=== PATIENT | female | born 1950 | race Caucasian/White ===

== ENCOUNTER 2018-09-27 20:37 | Inpatient (IN) | payer BC, MEDICARE ==
[2018-09-27 20:37] VITALS: BMI 27.4
--- NOTE | 2018-09-27 21:19 | C.PDOC ---
History Of Present Illness 68 yr old female w/ hx of htn, CAD, HLD, Dm2, foot cellulitis p/w foot infection. Per family and pt bedside pt noticed worsening wound recently to R 3rd digit along the plantar surface. Pt went to see Dr. Reid today who referred her to the ED. Pt notes worsening swelling to her RLE as well. She denies any fall or trauma to her foot but notes that 2 weeks prior she was on antibiotics for her R 2nd digit. R 2nd digit improved and she denies any complaints to that area. She notes chills and subjective fever but no URI symptoms or cough / congestion. No CP or SOB. No abdominal pain. No GI or complaints. No other complaints. Time Seen by Provider: 09/27/18 21:18 Chief Complaint (Nursing): Abnormal Skin Integrity Past Medical History Vital Signs: Last Vital Signs Temp 99.3 F 09/27/18 20:39 Pulse 106 H 09/27/18 20:39 Resp 22 09/27/18 20:39 BP 142/74 09/27/18 20:39 Pulse Ox 97 09/27/18 20:39 - Medical History PMH: CAD, Diabetes, HTN, Hypercholesterolemia Denies: Chronic Kidney Disease Surgical History: Denies: Pacemaker - [facility] Procedures CENTRAL VENOUS CATHETER PLACEMENT WITH GUIDANCE (11/21/14) CLOSED ENDOSCOPIC BIOPSY OF LARGE INTESTINE (08/29/13) ENDOSC POLYPECTOMY OF LG INTEST (09/19/13) EXCISION OF TOE NAIL, EXTERNAL APPROACH (06/10/18) Family History: States: Unknown Family Hx - Social History Hx Alcohol Use: No Hx Substance Use: No Review Of Systems Constitutional: Positive for: Fever, Chills. Negative for: Sweats, Weight loss Eyes: Negative for: Pain, Vision Change ENT: Negative for: Ear Pain, Nose Pain, Throat Pain Cardiovascular: Negative for: Chest Pain Respiratory: Negative for: Cough, Shortness of Breath Gastrointestinal: Negative for: Nausea, Vomiting, Abdominal Pain Genitourinary: Negative for: Dysuria Musculoskeletal: Positive for: Foot Pain. Negative for: Neck Pain, Back Pain Skin: Negative for: Rash, Lesions Neurological: Negative for: Headache Physical Exam - Physical Exam Appears: Well, Non-toxic, No Acute Distress Skin: Other (RLE 3rd digit cellulitis, no crepitus noted) Head: Atraumatic, Normacephalic Eye(s): bilateral: Normal Inspection, PERRL, EOMI Oral Mucosa: Moist Tongue: Normal Appearing Lips: Normal Appearing Neck: Normal, Normal ROM, Supple, Other (no meningeal signs) Chest: Symmetrical Cardiovascular: Rhythm Regular Respiratory: Normal Breath Sounds Gastrointestinal/Abdominal: Normal Exam, Soft, No Tenderness, No Mass, No Distention Back: Normal Inspection, No CVA Tenderness, No Vertebral Tenderness Extremity: Deformity (R 3rd digit open wound w/ surronding erythema without crepitus), Other (good n/v status in all extremitieis) Pulses: Left Dorsalis Pedis: Normal, Right Dorsalis Pedis: Normal Neurological/Psych: Oriented x3, Normal Speech, Normal Cognition ED Course And Treatment - Laboratory Results Result Diagrams: 09/27/18 21:49 O2 Sat by Pulse Oximetry: 97 Medical Decision Making Medical Decision Makin yr old female w/ hx of diabetes, cellulitis, p/w foot pain, 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 RLE swelling noted as well, but good pulses not ed to RLE. No fall or trauma history. No thrombophlebitis on exam. No crepitus. No other complaints. No cp, sob, abd pain, back pain, groin pain, or abnl vaginal d/c. Family bedside requesting Ila for ID and Val for Foot abx ordered: noted allergy to Vanco and Pencillin. 1000 labs reviewed lac 1.4 mild leukocytosis Appreciate consult w/ Podiatry resident on for Dr. Neal: to see xrays and to see pt [id number] xray notable for probable osteonecrosis to r 3rd toe Appreciate consult w/ Dr. Martinez: to admit to his service pt in NAD, agreeable to plan. denies any dark or bloody stool. Disposition - Disposition Disposition: LEFT W/O BEING SEEN - ER ONLY Disposition Time: 22:44 Condition: STABLE Forms: [facility] (Japanese) - Clinical Impression Clinical Impression: Diabetic foot infection
[2018-09-27 21:58] LABS: BASO % 0.3 % (0.0-2.0); EOS # 0.1 K/uL (0.0-0.7); EOS % 0.8 % (0.0-4.0); HEMOGLOBIN 11.3 g/dL (11.0-16.0); LYMPH # 1.5 K/uL (1.0-4.3); LYMPH % 12.8 % (20.0-40.0); MEAN CELL VOLUME 85.3 fL (81.0-99.0); MEAN CORPUSCULAR HEMOGLOBIN 27.9 pg (27.0-31.0); MEAN CORPUSCULAR HGB CONC 32.6 g/dL (33.0-37.0); MEAN PLATELET VOLUME 8.1 fL (7.2-11.7); MONO # 0.9 K/uL (0.0-0.8); MONO % 7.9 % (0.0-10.0); NEUT # 9.1 K/uL (1.8-7.0); NEUT % 78.2 % (50.0-75.0); RBC 4.04 Mil/uL (3.80-5.20); WHITE BLOOD COUNT 11.6 K/uL (4.8-10.8)
[2018-09-27] MEDS ORDERED: metroNIDAZOLE IV 500 mg/100 ml 500 MG/100 ML BAG IVPB STA (22:05)
[2018-09-27] MEDS ORDERED: Aztreonam 2 GM in Sodium Chloride 0.9% 100 ML IVPB ONE (22:05)
[2018-09-27 22:09] LABS: VENOUS BLOOD GAS PCO2 47 mmHg (40-60); VENOUS BLOOD GAS PO2 34 mm/Hg (30-55); VENOUS BLOOD PH 7.38 (7.32-7.43)
[2018-09-27] MEDS: Sodium Chloride 0.9% 1,000 ML IV SCH (22:37)
[2018-09-27 22:47] LABS: ALB/GLOB RATIO 1.1 (1.0-2.1); ALBUMIN 3.9 g/dL (3.5-5.0); AST/SGOT 14 U/L (14-36); BLOOD UREA NITROGEN 20 mg/dL (7-17); CALCIUM 9.4 mg/dl (8.6-10.4); GFR NON-AFRICAN AMERICAN > 60
[2018-09-27 22:49] LABS: ALT/SGPT < 6 U/L (9-52)
[2018-09-27] MEDS ORDERED: Glucagon Recombinant 1 mg Inj IM PRN (23:15)
[2018-09-27] MEDS ORDERED: Dextrose 50% SYRINGE Inj (50 ml) IV PRN (23:15)
[2018-09-28] MEDS: Sodium Chloride 0.9% 1,000 ML IV SCH ×3 (06:00→17:58)
--- NOTE | 2018-09-28 06:23 | CP.PCM.CON ---
History of Present Illness - History of Present Illness History of Present Illness: Podiatry consult note for Dr. Geo Neal, 68 y/o female patient with PMHx of DM2, hyperlipidemia, HTN was seen and evaluated in the ED for an infected 3rd digit. Patient states she was regularly following up with Dr. Reid for wound check, and last saw her today. Patient states she was sent to the ED by Dr. Reid. Patient came to [facility] [place] family has requested Dr. Geo Neal for podiatry consult. Patient states the wound wors ened over the last several weeks. Patient complains of associated fever and chills. Patient denies any nausea or vomiting. patient denies any pain to the foot, chest pain, shortness of breath, or abdominal pain. PMH: DM2, Hyperlipidemia PSH: C/section twice. Allergies: Penicillins, vancomycin (anaphylaxis), Levofloxacin Social Hx: denies smoking, EtOH, or illicit drug use Review of Systems - Review of Systems All systems: reviewed and no additional remarkable complaints except Review of Systems: as per HPI Past Patient History - Infectious Disease Hx of Infectious Diseases: None - Tetanus Immunizations Tetanus Immunization: Unknown - Past Medical History & Family History Past Medical History?: Yes - Past Social History Smoking Status: Never Smoked - CARDIAC Hx Cardiac Disorders: Yes Hx Hypercholesterolemia: Yes Hx Hypertension: Yes Hx Pacemaker: No - PULMONARY Hx Respiratory Disorders: No - NEUROLOGICAL Hx Neurological Disorder: Yes (diabetic neuropathy) - HEENT Hx HEENT Problems: Yes Hx Cataracts: Yes (bilat cataract sx) - RENAL Hx Chronic Kidney Disease: No - ENDOCRINE/METABOLIC Hx Endocrine Disorders: Yes Hx Diabetes Mellitus Type 2: Yes (iddm) - HEMATOLOGICAL/ONCOLOGICAL Hx Blood Disorders: No - INTEGUMENTARY Hx Dermatological Problems: Yes Other/Comment: black spots to both legs - MUSCULOSKELETAL/RHEUMATOLOGICAL Hx Falls: No - GASTROINTESTINAL Hx Gastrointestinal Disorders: Yes Hx Gastroesophageal Reflux: Yes Other/Comment: endoscopy with colon biopsy, hemorrhoids - GENITOURINARY/GYNECOLOGICAL Hx Genitourinary Disorders: No - PSYCHIATRIC Hx Substance Use: No - SURGICAL HISTORY Hx Surgeries: Yes Hx Section: Yes - ANESTHESIA Hx Anesthesia: Yes Hx Anesthesia Reactions: No Hx Malignant Hyperthermia: No Has any member of the family had a problem w/ anesthesia?: No Meds Allergies/Adverse Reactions: Allergies Allergy/AdvReac Type Severity Reaction Status Date / Time Penicillins Allergy RASH Verified 09/27/18 20:45 vancomycin Allergy RASH Verified 09/27/18 20:45 levofloxacin [From Levaquin] AdvReac SHORTNESS Verified 09/27/18 20:45 OF BREATH - Medications Medications: Current Medications Dextrose (Dextrose 50% Inj) 0 ml IV STAT PRN; Protocol PRN Reason: Hypoglycemia Protocol Dextrose (Glutose 15) 0 gm PO ONCE PRN; Protocol PRN Reason: Hypoglycemia Protocol Gabapentin (Neurontin) 300 mg PO TID [facility] Gemfibrozil (Lopid) 600 mg PO BID [facility] Glimepiride (Amaryl) 4 mg PO DAILY [facility] Glucagon (Glucagen Diagnostic Kit) 0 mg IM STAT PRN; Protocol PRN Reason: Hypoglycemia Protocol Heparin Sodium (Porcine) (Heparin) 5,000 units SC Q8 [facility] Last Admin: 09/28/18 05:59 Dose: 5,000 units Hydrochlorothiazide (Microzide) 12.5 mg PO DAILY [facility] Sodium Chloride (Sodium Chloride 0.9%) 1,000 mls @ 100 mls/hr IV .Q10H [facility] Last Admin: 09/28/18 06:00 Dose: 100 mls/hr Dextrose (Dextrose 5% In Water 1000 Ml) 1,000 mls @ 0 mls/hr IV .Q0M PRN; Protocol PRN Reason: Hypoglycemia Protocol Influenza Virus Vaccine (Flucelvax Quad [id number] Syr) 60 mcg IM .ONCE ONE Stop: 09/30/18 10:01 Insulin Glargine (Lantus) 25 unit SC HS [facility] Insulin Human Regular (Novolin R) 0 unit SC ACHS [facility]; Protocol Montelukast Sodium (Singulair) 10 mg PO DAILY [facility] Pneumococcal Polyvalent Vaccine (Pneumovax 23 Vaccine) 0.5 ml IM .ONCE ONE Stop: 09/30/18 10:01 Rosuvastatin Calcium (Crestor) 5 mg PO HS [facility] Physical Exam - Constitutional Appears: Well, No Acute Distress - Head Exam Head Exam: ATRAUMATIC, NORMOCEPHALIC - Eye Exam Eye Exam: Normal appearance - ENT Exam ENT Exam: Mucous Membranes Moist - Extremities Exam Additional comments: Bilateral Lower Extremity Focused Exam VASC: DP and PT 2/4 bilaterally, Cap refill less than 3 seconds to all digits except right 3rd, Temp gradient is warm to warm to the dorsum of the right foot, Mild edema noted NEURO: diminished gross and protective sensations. DERM: wound noted to the tip of the right 3rd digit, positive purulent drainage, with moderate erythema, positive probe to bone, positive malodor with positive fluctuance, third digit swollen and erythematous with slight discoloration noted MSK: No pain on palpation the right hallux. Muscle power intact 5/5 to all groups - Neurological Exam Neurological exam: Alert, Oriented x3 - Psychiatric Exam Psychiatric exam: Normal Affect, Normal Mood - Skin Skin Exam: Normal Color Results - Vital Signs Recent Vital Signs: Last Vital Signs Temp 100.1 F H 09/28/18 00:10 Pulse 104 H 09/28/18 00:10 Resp 20 09/28/18 00:10 BP 147/78 09/28/18 00:10 Pulse Ox 95 09/28/18 00:10 - Labs Result Diagrams: 09/27/18 21:49 09/27/18 21:49 Labs: Laboratory Results - last 24 hr 09/27/18 09/27/18 09/27/18 21:49 21:49 22:00 WBC 11.6 H RBC 4.04 Hgb 11.3 D Hct 34.5 MCV 85.3 MCH 27.9 MCHC 32.6 L RDW 13.0 Plt Count 287 MPV 8.1 Neut % (Auto) 78.2 H Lymph % (Auto) 12.8 L [place] % (Auto) 7.9 Eos % (Auto) 0.8 Baso % (Auto) 0.3 Neut # (Auto) 9.1 H Lymph # (Auto) 1.5 [place] # (Auto) 0.9 H Eos # (Auto) 0.1 Baso # (Auto) 0.0 pO2 34 VBG pH 7.38 VBG pCO2 47 VBG HCO3 25.6 VBG Total CO2 29.2 H VBG O2 Sat (Calc) 70.6 H VBG Base Excess 2.0 VBG Potassium 4.0 Glucose 335 H Lactate 1.4 Sodium 131 L 133.0 Potassium 3.8 Chloride 93 L 100.0 Carbon Dioxide 27 Anion Gap 14 BUN 20 H Creatinine 0.9 Est GFR ( Amer) > 60 Est GFR (Non-Af Amer) > 60 Random Glucose 358 H Calcium 9.4 Total Bilirubin 0.4 AST 14 D ALT < 6 L D Alkaline Phosphatase 84 Total Protein 7.5 Albumin 3.9 Globulin 3.6 Albumin/Globulin Ratio 1.1 Venous Blood Potassium 4.0 Assessment & Plan - Assessment and Plan (Free Text) Assessment: 68 y/o female patient was seen and evaluated in the [facility] ED for 3rd digit infected wound Plan: Patient seen and evaluated Plan discussed with Dr. Geo neal chart, labs and vitals were reviewed- WBC 11.9, febrile Ordered right foot x-ray- possible soft tissue emphysema noted at the level of the 3rd digit with destruction of the third middle and distal phalanges Bedside Incision and drainage performed to remove any purulent drainage about 2- 3 cc drained along with sero-sanguinous fluid Wound dressed with betadine DSD Wound culture obtained ID consult placed patient to be admitted for IV Abx Podiatry will continue to follow patient while in house Thank you for the consult - Date & Time Date: 09/28/18 Time: 09:21
--- NOTE | 2018-09-28 08:15 | CP.PCM.HP ---
History of Present Illness - History of Present Illness History of Present Illness: Chief complaint: Fever chills HPI: 68-year-old female with a history of diabetes, hyperlipidemia, hypercholesterolemia and a history of right-sided small hydronephrosis admitted recently to [facility] with right-sided leg ulcer. Patient was being treated as an outpatient. But she started having increasing fever chills, right-sided leg pain. Patient went to see business leader recommended hospitalization. Patient came to the emergency room with right leg swelling, warmth illness. She was also having chills and rigor. Patient blood sugar is also elevated. Patient started having the problem almost summer 2017 following year suspected fracture of the right great toe proximal phalanx. Following that she started developing problems in that second toe, now she is also having problem on her third toe with the discharge noted. Also ulcer present. Patient has a significant diabetic neuropathy She has now mild headache. Complaining of cough. Patient has multiple allergies to antibiotic including penicillin Vanco levofloxacin. Mostly patient has symptoms of rash, and sometimes shortness of breath with allergies. Past medical history: Hypertension diabetes hypercholesterolemia. History of CAD in the past. Patient recently had a stress test done in 2018, which was negative. Ejection fraction was 53%. Surgical history includes Family history significant for diabetes and hypertension. Patient is a non-smoker nonalcoholic. Currently retired. Patient has 2 kids Review of system: Headache noted Cough present. Cough is bothering her, associate with the some minimal wheezing. Patient in the past has some allergies. No chest pain, no shortness of breath. Patient has a no loss of appetite. Regular bowel habits noted. Complaining of right-sided leg pain Also complaining of warmth. On examination: Patient is not in any distress. Vital signs otherwise stable. Low-grade fever last night noted. Chest good air entry bilaterally, no wheezing or rales noted, heart sounds are regular otherwise, nontender abdomen Extremities bilateral dorsalis pedis artery not palpable. But the palpable of the tibialis posterior artery noted. Right leg patient has heart feeling noted There is a cough tenderness noted Patient also has a significant ulcer in the third toe. Dressed Labs reviewed Elevated WBC noted. Chest x-ray not done yet. Foot x-ray showing no evidence of any gas formation Assessment and recommendation: 68-year-old female with a history of diabetes, very poorly controlled Patient also has a history of hypertension and hyperlipidemia. History of recurrent right foot ulcer, diabetic neuropathy. Most likely patient has a possible diabetic foot ulcers at this time. Patient has multiple allergies to antibiotic at this time I recommended infectious disease evaluation. Also will get a podiatry evaluation. Antibiotic as per ID. may need to check the vascular status of the leg. Patient had arterial Doppler recently within the last 6 months showing no evidence of problems. But will continue to monitor Present on Admission - Present on Admission Any Indicators Present on Admission: No History of DVT/PE: No History of Uncontrolled Diabetes: No Urinary Catheter: No Decubitus Ulcer Present: No Past Patient History - Infectious Disease Hx of Infectious Diseases: None - Tetanus Immunizations Tetanus Immunization: Unknown - Past Medical History & Family History Past Medical History?: Yes - Past Social History Smoking Status: Never Smoked - CARDIAC Hx Cardiac Disorders: Yes Hx Hypercholesterolemia: Yes Hx Hypertension: Yes Hx Pacemaker: No - PULMONARY Hx Respiratory Disorders: No - NEUROLOGICAL Hx Neurological Disorder: Yes (diabetic neuropathy) - HEENT Hx HEENT Problems: Yes Hx Cataracts: Yes (bilat cataract sx) - RENAL Hx Chronic Kidney Disease: No - ENDOCRINE/METABOLIC Hx Endocrine Disorders: Yes Hx Diabetes Mellitus Type 2: Yes (iddm) - HEMATOLOGICAL/ONCOLOGICAL Hx Blood Disorders: No - INTEGUMENTARY Hx Dermatological Problems: Yes Other/Comment: black spots to both legs - MUSCULOSKELETAL/RHEUMATOLOGICAL Hx Falls: No - GASTROINTESTINAL Hx Gastrointestinal Disorders: Yes Hx Gastroesophageal Reflux: Yes Other/Comment: endoscopy with colon biopsy, hemorrhoids - GENITOURINARY/GYNECOLOGICAL Hx Genitourinary Disorders: No - PSYCHIATRIC Hx Substance Use: No - SURGICAL HISTORY Hx Surgeries: Yes Hx Section: Yes - ANESTHESIA Hx Anesthesia: Yes Hx Anesthesia Reactions: No Hx Malignant Hyperthermia: No Has any member of the family had a problem w/ anesthesia?: No Meds Allergies/Adverse Reactions: Allergies Allergy/AdvReac Type Severity Reaction Status Date / Time Penicillins Allergy RASH Verified 09/27/18 20:45 vancomycin Allergy RASH Verified 09/27/18 20:45 levofloxacin [From Levaquin] AdvReac SHORTNESS Verified 09/27/18 20:45 OF BREATH Results - Vital Signs Recent Vital Signs: Last Vital Signs Temp 98.9 F 09/28/18 07:25 Pulse 104 H 09/28/18 07:25 Resp 20 09/28/18 07:25 BP 128/64 09/28/18 07:25 Pulse Ox 96 09/28/18 07:25 - Labs Result Diagrams: 09/27/18 21:49 09/27/18 21:49 Labs: Laboratory Results - last 24 hr 09/27/18 09/27/18 09/27/18 21:49 21:49 22:00 WBC 11.6 H RBC 4.04 Hgb 11.3 D Hct 34.5 MCV 85.3 MCH 27.9 MCHC 32.6 L RDW 13.0 Plt Count 287 MPV 8.1 Neut % (Auto) 78.2 H Lymph % (Auto) 12.8 L [place] % (Auto) 7.9 Eos % (Auto) 0.8 Baso % (Auto) 0.3 Neut # (Auto) 9.1 H Lymph # (Auto) 1.5 [place] # (Auto) 0.9 H Eos # (Auto) 0.1 Baso # (Auto) 0.0 pO2 34 VBG pH 7.38 VBG pCO2 47 VBG HCO3 25.6 VBG Total CO2 29.2 H VBG O2 Sat (Calc) 70.6 H VBG Base Excess 2.0 VBG Potassium 4.0 Glucose 335 H Lactate 1.4 Sodium 131 L 133.0 Potassium 3.8 Chloride 93 L 100.0 Carbon Dioxide 27 Anion Gap 14 BUN 20 H Creatinine 0.9 Est GFR ( Amer) > 60 Est GFR (Non-Af Amer) > 60 Random Glucose 358 H Calcium 9.4 Total Bilirubin 0.4 AST 14 D ALT < 6 L D Alkaline Phosphatase 84 Total Protein 7.5 Albumin 3.9 Globulin 3.6 Albumin/Globulin Ratio 1.1 Venous Blood Potassium 4.0
[2018-09-28] MEDS: Promethazine 6.25 MG/5 ML CUP PO PRN (10:22)
--- NOTE | 2018-09-28 11:32 | CP.PCM.PN ---
Subjective - Date & Time of Evaluation Date of Evaluation: 09/28/18 Time of Evaluation: 11:00 - Subjective Subjective: Progress Note for Podiatry- Dr. Neal 68 y/o female patient with PMHx of DM2, hyperlipidemia, HTN was seen and evaluated with attending Dr. Neal at bedside for infected right 3rd digit with likely underlying osteomyelitis. Patient is seen resting comfortably in bed, in NAD, AAOx3. Patient reports sleeping okay. Reports feeling a fever. Denies of any pain to the right foot. Patient reports that she has neuropathy to the feet and unable to feel sensation. Denies nausa, vomitting, shortness of breath, or chest pains. Objective - Vital Signs/Intake and Output Vital Signs (last 24 hours): Temp Pulse Resp BP Pulse Ox 98.9 F 104 H 20 128/64 96 09/28/18 07:25 09/28/18 07:25 09/28/18 07:25 09/28/18 07:25 09/28/18 07:25 - Medications Medications: Current Medications Acetaminophen (Tylenol 325mg Tab) 650 mg PO Q6 PRN PRN Reason: Headache Albuterol/Ipratropium (Duoneb 3 Mg/0.5 Mg (3 Ml) Ud) [address] [facility] Dextrose (Dextrose 50% Inj) 0 ml IV STAT PRN; Protocol PRN Reason: Hypoglycemia Protocol Dextrose (Glutose 15) 0 gm PO ONCE PRN; Protocol PRN Reason: Hypoglycemia Protocol Gabapentin (Neurontin) [address] [facility] Last Admin: 09/28/18 09:49 Dose: 300 mg Gemfibrozil (Lopid) [address] [facility] Last Admin: 09/28/18 09:49 Dose: 600 mg Glimepiride (Amaryl) [address] [facility] Last Admin: 09/28/18 09:49 Dose: 4 mg Glucagon (Glucagen Diagnostic Kit) 0 mg IM STAT PRN; Protocol PRN Reason: Hypoglycemia Protocol Heparin Sodium (Porcine) (Heparin) 5,[address] [facility] Last Admin: 09/28/18 05:59 Dose: 5,000 units Hydrochlorothiazide (Microzide) 12.[address] [facility] Last Admin: 09/28/18 09:49 Dose: 12.5 mg Sodium Chloride (Sodium Chloride 0.9%) 1,000 mls @ 100 mls/hr IV .Q10H [facility] Last Admin: 09/28/18 10:01 Dose: Not Given Dextrose (Dextrose 5% In Water 1000 Ml) 1,000 mls @ 0 mls/hr IV .Q0M PRN; Protocol PRN Reason: Hypoglycemia Protocol Influenza Virus Vaccine (Flucelvax Quad [id number] Syr) 60 mcg IM .ONCE ONE Stop: 09/30/18 10:01 Insulin Glargine (Lantus) 25 unit SC [facility] Insulin Human Regular (Novolin R) 0 unit SC [facility]; Protocol Montelukast Sodium (Singulair) [address] [facility] Last Admin: 09/28/18 09:49 Dose: 10 mg Pneumococcal Polyvalent Vaccine (Pneumovax 23 Vaccine) 0.5 ml IM .ONCE ONE Stop: 09/30/18 10:01 Promethazine HCl (Phenergan Syrup) 6.25 mg PO Q6 PRN PRN Reason: Cough Last Admin: 09/28/18 10:22 Dose: 6.25 mg Rosuvastatin Calcium (Crestor) 5 mg PO [facility] - Labs Labs: 09/27/18 21:49 09/27/18 21:49 - Constitutional Appears: Well, Non-toxic, No Acute Distress - Extremities Exam Extremities Exam: absent: Calf Tenderness Additional comments: Bilateral Lower Extremity Focused Exam VASC: DP and PT 2/4 bilaterally, Cap refill less than 3 seconds to all digits except right 3rd, Temp gradient is warm to warm to the dorsum of the right foot, Mild edema noted NEURO: diminished gross and protective sensations. DERM: wound noted to the tip of the right 3rd digit, positive purulent drainage, with moderate erythema, positive probe to bone, positive malodor with positive fluctuance, third digit swollen and erythematous with slight discoloration noted MSK: No pain on palpation the right hallux. Muscle power intact 5/5 to all groups - Neurological Exam Neurological Exam: Alert, Awake, Oriented x3 - Psychiatric Exam Psychiatric exam: Normal Affect, Normal Mood Assessment and Plan - Assessment and Plan (Free Text) Assessment: 68 y/o female patient was seen and evaluated 3rd digit infected digit with wound and likely underlying osteomyelitis Plan: Patient seen and evaluated with attending Dr. Neal at bedside Plan discussed with Dr. Geo Neal Chart, labs and vitals were reviewed- WBC 11.6, febrile X-ray reviewed- 3rd digit OM, subacute to chronic nondisplaced fracture of 1st proximal phalanx Bedside incision and drainage in the ED on 09/27/18 performed to remove any purulent drainage about 2-3 cc drained along with sero-sanguinous fluid 3rd digit cleansed and betadine wet to dry applied ID consult placed, recommendations appreciated Wound culture right foot pending Patient likely has OM of the 3rd digit. Plan to go to the OR for amputation of entire 3rd digit on Thursday at 3:30PM pending medical clearance and cardiac clearance Cardiac consulted- recommendations appreciated. Thank you Patient may WBAT in surgical shoe
[2018-09-28] MEDS: (Novolin R) Insulin Human Regular 100 units/ml vial SC SCH ×4 (12:18→21:28)
[2018-09-28] MEDS: Albuterol-Ipratrop 3 mg / 0.5 (3 ml) UD INH SCH ×2 (13:25→20:28)
--- NOTE | 2018-09-28 13:31 | VASCLAB ---
Date of service: 09/28/2018 PROCEDURE: Lower Extremity Venous Duplex Exam. HISTORY: Calf pain PRIORS: None. TECHNIQUE: Bilateral common femoral, femoral, popliteal and posterior tibial, peroneal and great saphenous veins were evaluated. Flow was assessed with color Doppler, compressibility, assessment of phasic flow and augmentation response. Report prepared by [facility]el FINDINGS: RIGHT: 1. Common Femoral Vein: 1.1. Compressibility - Fully compressible: Thrombus - None : Flow - Phasic: Augmentation -Normal: Reflux - None. 2. Femoral Vein: 2.1. Compressibility - Fully compressible: Thrombus - None : Flow - Phasic: Augmentation -Normal: Reflux - None. 3. Popliteal Vein: 3.1. Compressibility - Fully compressible: Thrombus - None : Flow - Phasic: Augmentation -Normal: Reflux - None. 4. Posterior Tibial Vein: 4.1. Compressibility - Fully compressible: Thrombus - None: Flow - Phasic: Augmentation -Normal: Reflux - None. 5. Peroneal Vein: 5.1. Compressibility - Fully compressible: Thrombus - None: Flow - Phasic: Augmentation -Normal: Reflux - None. 6. Great Saphenous Vein: 6.1. Compressibility - Fully compressible: Thrombus - None: Flow - Phasic: Augmentation - Normal: Reflux - None. LEFT: 1. Common Femoral Vein: 1.1. Compressibility - Fully compressible: Thrombus - None: Flow - Phasic: Augmentation -Normal: Reflux - None. 2. Femoral Vein: 2.1. Compressibility - Fully compressible: Thrombus - None: Flow - Phasic: Augmentation -Normal: Reflux - None. 3. Popliteal Vein: 3.1. Compressibility - Fully compressible: Thrombus - None : Flow - Phasic: Augmentation -Normal: Reflux - None. 4. Posterior Tibial Vein: 4.1. Compressibility - Fully compressible: Thrombus - None: Flow - Phasic: Augmentation -Normal: Reflux - None. 5. Peroneal Vein: 5.1. Compressibility - Fully compressible: Thrombus - None: Flow - Phasic: Augmentation -Normal: Reflux - None. 6. Great Saphenous Vein: 6.1. Compressibility - Fully compressible: Thrombus - None: Flow - Phasic: Augmentation - Normal: Reflux - None. OTHER FINDINGS: Right: None significant. Left: None significant. IMPRESSION: Right: No evidence of deep or superficial vein thrombosis of the right lower extremity. Normal valve function noted of the right side. Left: No evidence of deep or superficial vein thrombosis of the left lower extremity. Normal valve function noted of the left side.
--- NOTE | 2018-09-28 13:41 | RAD ---
Date of service: 09/27/2018 PROCEDURE: HISTORY: infx COMPARISON: None TECHNIQUE: Three views FINDINGS: Abnormal increased density and lesser linear lucencies over the 1st proximal phalanx present. Here comminuted nondisplaced fracture with subchondral sclerosis is inferred concomitant spurring along the lateral proximal margin of this proximal phalanx possible. Some intra-articular extension proximally at the metacarpal and interphalangeal levels are possible. Fracture appears subacute to chronic. Correlate clinically. Additional ossifications are seen in this area is difficult to see if these are old osseous avulsions and/or represent concomitant sesamoid bones. No dislocation noted. Fifth toe clinodactyly. Soft tissue swelling and osseous ill definition 3rd distal phalanx here osteomyelitis or other destructive process needs to be considered. Cellulitis here is inferred. The 3rd middle phalanx appears intact. A well corticated bony density probably 4 mm borders the calcaneal anterior process here and os calcaneus mental variant is 1 consideration. An old osseous avulsion here is another. Inferior calcaneal spurring noted. IMPRESSION: Osseous destruction of the 3rd distal phalanx overlying soft tissue findings compatible with cellulitis. Given the osseous destruction demineralization-an osteo myelitis here needs to be considered. The 1st proximal phalangeal appearances compatible with a subacute to chronic nondisplaced comminuted fracture as referenced above. Comments: Comments: Study marked for PA review .
--- NOTE | 2018-09-28 14:25 | RAD ---
Date of service: 09/28/2018 HISTORY: cough COMPARISON: No prior. TECHNIQUE: 1 view obtained. FINDINGS: LUNGS: No active pulmonary disease. PLEURA: No significant pleural effusion identified, no pneumothorax apparent. CARDIOVASCULAR: There is presence of aortic atherosclerotic calcification on x-ray. Normal cardiac size. Mild pulmonary venous congestion possible OSSEOUS STRUCTURES: No significant abnormalities. VISUALIZED UPPER ABDOMEN: Normal. OTHER FINDINGS: None. IMPRESSION: No consolidative infiltrate. Mild pulmonary venous congestion possible.
--- NOTE | 2018-09-28 17:20 | CP.PCM.CON ---
History of Present Illness - History of Present Illness History of Present Illness: INFECTIOUS DISEASE CONSULTATION JAVIER MILLER MD, FACP 09/28/2018 3T 371-A CHART REVIEWED PT EXAMINED CASE DISCUSSED AN INFECTIOUS DISEASE CONSULTATION WAS REQUESTED 2ND TO CELLULITIS/OSTEOMYLITIS 3RD TOE RIGHT FOOT. 68 yr old female w/ hx of htn, CAD, HLD, Dm2, foot cellulitis p/w foot infection. pt noticed worsening wound recently to R 3rd digit along the plantar surface. Pt went to see Dr. Reid who referred her to the ED. Pt notes worsening swelling to her RLE as well. She denies any fall or trauma to her foot but notes that 2 weeks prior she was on antibiotics for her R 2nd digit. R 2nd digit improved and NOW she denies any complaints to that area. She notes chills and subjective fever but no URI symptoms or cough / congestion. No CP or SOB. No abdominal pain. No GI or complaints. No other complaints. Time Seen by Provider: 09/27/18 21:18 Chief Complaint (Nursing): Abnormal Skin Integrity Past Medical History Vital Signs: Last Vital Signs Temp 99.3 F 09/27/18 20:39 Pulse 106 H 09/27/18 20:39 Resp 22 09/27/18 20:39 BP 142/74 09/27/18 20:39 Pulse Ox 97 09/27/18 20:39 - Medical History PMH: CAD, Diabetes, HTN, Hypercholesterolemia Denies: Chronic Kidney Disease Surgical History: Denies: PacemakER CENTRAL VENOUS CATHETER PLACEMENT WITH GUIDANCE (11/21/14) CLOSED ENDOSCOPIC BIOPSY OF LARGE INTESTINE (08/29/13) ENDOSC POLYPECTOMY OF LG INTEST (09/19/13) EXCISION OF TOE NAIL, EXTERNAL APPROACH (06/10/18) Family History: States: Unknown Family Hx - Social History Hx Alcohol Use: No Hx Substance Use: No Review Of Systems Constitutional: Positive for: Fever, Chills. Negative for: Sweats, Weight loss Eyes: Negative for: Pain, Vision Change ENT: Negative for: Ear Pain, Nose Pain, Throat Pain Cardiovascular: Negative for: Chest Pain Respiratory: Negative for: Cough, Shortness of Breath Gastrointestinal: Negative for: Nausea, Vomiting, Abdominal Pain Genitourinary: Negative for: Dysuria Musculoskeletal: Positive for: Foot Pain. Negative for: Neck Pain, Back Pain Skin: Negative for: Rash, Lesions Neurological: Negative for: Headache Physical Exam - Physical Exam Appears: Well, Non-toxic, No Acute Distress Skin: Other (RLE 3rd digit cellulitis, no crepitus noted) Head: Atraumatic, Normacephalic Eye(s): bilateral: Normal Inspection, PERRL, EOMI Oral Mucosa: Moist Tongue: Normal Appearing Lips: Normal Appearing Neck: Normal, Normal ROM, Supple, Other (no meningeal signs) Chest: Symmetrical Cardiovascular: Rhythm Regular Respiratory: Normal Breath Sounds Gastrointestinal/Abdominal: Normal Exam, Soft, No Tenderness, No Mass, No Distention Back: Normal Inspection, No CVA Tenderness, No Vertebral Tenderness Extremity: Deformity (R 3rd digit open wound w/ surronding erythema without crepitus), Other (good n/v status in all extremitieis) Pulses: Left Dorsalis Pedis: Normal, Right Dorsalis Pedis: Normal Neurological/Psych: Oriented x3, Normal Speech, Normal Cognition ED Course And Treatment - Laboratory Results Result Diagrams: O2 Sat by Pulse Oximetry: 97 Medical Decision Making Medical Decision Makin yr old female w/ hx of diabetes, cellulitis, p/w foot pain, 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 RLE swelling noted as well, but good pulses noted to RLE. No fall or trauma history. No thrombophlebitis on exam. No crepitus. No other complaints. No cp, sob, abd pain, back pain, groin pain, or abnl vaginal d/c. Family bedside requesting Ila for ID and Val for Foot abx ordered: noted allergy to Vanco-IT MILLER AT THE IV SITE, THIS IS NOT AN ALLERGY, BUT Pencillin(?)-POSSIBLY. 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 WITH UNDERLYING DM CUBICIN AND MERREM Past Patient History - Infectious Disease Hx of Infectious Diseases: None - Tetanus Immunizations Tetanus Immunization: Unknown - Past Medical History & Family History Past Medical History?: Yes - Past Social History Smoking Status: Never Smoked - CARDIAC Hx Cardiac Disorders: Yes Hx Hypercholesterolemia: Yes Hx Hypertension: Yes Hx Pacemaker: No - PULMONARY Hx Respiratory Disorders: No - NEUROLOGICAL Hx Neurological Disorder: Yes (diabetic neuropathy) - HEENT Hx HEENT Problems: Yes Hx Cataracts: Yes (bilat cataract sx) - RENAL Hx Chronic Kidney Disease: No - ENDOCRINE/METABOLIC Hx Endocrine Disorders: Yes Hx Diabetes Mellitus Type 2: Yes (iddm) - HEMATOLOGICAL/ONCOLOGICAL Hx Blood Disorders: No - INTEGUMENTARY Hx Dermatological Problems: Yes Other/Comment: black spots to both legs - MUSCULOSKELETAL/RHEUMATOLOGICAL Hx Falls: No - GASTROINTESTINAL Hx Gastrointestinal Disorders: Yes Hx Gastroesophageal Reflux: Yes Other/Comment: endoscopy with colon biopsy, hemorrhoids - GENITOURINARY/GYNECOLOGICAL Hx Genitourinary Disorders: No - PSYCHIATRIC Hx Substance Use: No - SURGICAL HISTORY Hx Surgeries: Yes Hx Section: Yes - ANESTHESIA Hx Anesthesia: Yes Hx Anesthesia Reactions: No Hx Malignant Hyperthermia: No Has any member of the family had a problem w/ anesthesia?: No Meds Allergies/Adverse Reactions: Allergies Allergy/AdvReac Type Severity Reaction Status Date / Time Penicillins Allergy RASH Verified 09/27/18 20:45 vancomycin Allergy RASH Verified 09/27/18 20:45 levofloxacin [From Levaquin] AdvReac SHORTNESS Verified 09/27/18 20:45 OF BREATH - Medications Medications: Current Medications Acetaminophen (Tylenol 325mg Tab) 650 mg PO Q6 PRN PRN Reason: Headache Last Admin: 09/28/18 12:18 Dose: 650 mg Albuterol/Ipratropium (Duoneb 3 Mg/0.5 Mg (3 Ml) Ud) 3 ml INH RQ6 [facility] Last Admin: 09/28/18 13:25 Dose: 3 ml Dextrose (Dextrose 50% Inj) 0 ml IV STAT PRN; Protocol PRN Reason: Hypoglycemia Protocol Dextrose (Glutose 15) 0 gm PO ONCE PRN; Protocol PRN Reason: Hypoglycemia Protocol Gabapentin (Neurontin) 300 mg PO TID [facility] Last Admin: 09/28/18 17:01 Dose: 300 mg Gemfibrozil (Lopid) 600 mg PO BID [facility] Last Admin: 09/28/18 17:02 Dose: 600 mg Glimepiride (Amaryl) 4 mg PO DAILY [facility] Last Admin: 09/28/18 09:49 Dose: 4 mg Glucagon (Glucagen Diagnostic Kit) 0 mg IM STAT PRN; Protocol PRN Reason: Hypoglycemia Protocol Heparin Sodium (Porcine) (Heparin) 5,000 units SC Q8 [facility] Last Admin: 09/28/18 13:44 Dose: 5,000 units Hydrochlorothiazide (Microzide) 12.5 mg PO DAILY [facility] Last Admin: 09/28/18 09:49 Dose: 12.5 mg Sodium Chloride (Sodium Chloride 0.9%) 1,000 mls @ 100 mls/hr IV .Q10H [facility] Last Admin: 09/28/18 10:01 Dose: Not Given Dextrose (Dextrose 5% In Water 1000 Ml) 1,000 mls @ 0 mls/hr IV .Q0M PRN; Protocol PRN Reason: Hypoglycemia Protocol Influenza Virus Vaccine (Flucelvax Quad [id number] Syr) 60 mcg IM .ONCE ONE Stop: 09/30/18 10:01 Insulin Glargine (Lantus) 25 unit SC HS [facility] Insulin Human Regular (Novolin R) 0 unit SC ACHS [facility]; Protocol Last Admin: 09/28/18 17:10 Dose: 6 units Montelukast Sodium (Singulair) 10 mg PO DAILY [facility] Last Admin: 09/28/18 09:49 Dose: 10 mg Pneumococcal Polyvalent Vaccine (Pneumovax 23 Vaccine) 0.5 ml IM .ONCE ONE Stop: 09/30/18 10:01 Promethazine HCl (Phenergan Syrup) 6.25 mg PO Q6 PRN PRN Reason: Cough Last Admin: 09/28/18 10:22 Dose: 6.25 mg Rosuvastatin Calcium (Crestor) 5 mg PO HS [facility] Results - Vital Signs Recent Vital Signs: Last Vital Signs Temp 98.9 F 09/28/18 07:25 Pulse 104 H 09/28/18 14:57 Resp 20 09/28/18 07:25 BP 128/64 09/28/18 07:25 Pulse Ox 96 09/28/18 07:25 - Labs Result Diagrams: 09/27/18 21:49 09/27/18 21:49 Labs: Laboratory Results - last 24 hr 09/27/18 09/27/18 09/27/18 21:49 21:49 22:00 WBC 11.6 H RBC 4.04 Hgb 11.3 D Hct 34.5 MCV 85.3 MCH 27.9 MCHC 32.6 L RDW 13.0 Plt Count 287 MPV 8.1 Neut % (Auto) 78.2 H Lymph % (Auto) 12.8 L [place] % (Auto) 7.9 Eos % (Auto) 0.8 Baso % (Auto) 0.3 Neut # (Auto) 9.1 H Lymph # (Auto) 1.5 [place] # (Auto) 0.9 H Eos # (Auto) 0.1 Baso # (Auto) 0.0 pO2 34 VBG pH 7.38 VBG pCO2 47 VBG HCO3 25.6 VBG Total CO2 29.2 H VBG O2 Sat (Calc) 70.6 H VBG Base Excess 2.0 VBG Potassium 4.0 Glucose 335 H Lactate 1.4 Sodium 131 L 133.0 Potassium 3.8 Chloride 93 L 100.0 Carbon Dioxide 27 Anion Gap 14 BUN 20 H Creatinine 0.9 Est GFR ( Amer) > 60 Est GFR (Non-Af Amer) > 60 POC Glucose (mg/dL) Random Glucose 358 H Calcium 9.4 Total Bilirubin 0.4 AST 14 D ALT < 6 L D Alkaline Phosphatase 84 Total Protein 7.5 Albumin 3.9 Globulin 3.6 Albumin/Globulin Ratio 1.1 Venous Blood Potassium 4.0 09/28/18 09/28/18 09/28/18 08:14 11:22 16:35 WBC RBC Hgb Hct MCV MCH MCHC RDW Plt Count MPV Neut % (Auto) Lymph % (Auto) [place] % (Auto) Eos % (Auto) Baso % (Auto) Neut # (Auto) Lymph # (Auto) [place]ax # (Auto) Eos # (Auto) Baso # (Auto) pO2 VBG pH VBG pCO2 VBG HCO3 VBG Total CO2 VBG O2 Sat (Calc) VBG Base Excess VBG Potassium Glucose Lactate Sodium Potassium Chloride Carbon Dioxide Anion Gap BUN Creatinine Est GFR ( Amer) Est GFR (Non-Af Amer) POC Glucose (mg/dL) 182 H 330 H 348 H Random Glucose Calcium Total Bilirubin AST ALT Alkaline Phosphatase Total Protein Albumin Globulin Albumin/Globulin Ratio Venous Blood Potassium
[2018-09-28] MEDS: Meropenem 500 MG in Sodium Chloride 0.9% 100 ML IVPB SCH (17:50)
[2018-09-28] MEDS ORDERED: (Lantus) Insulin Glargine, Recombinant SC SCH (22:00)
[2018-09-29] MEDS: Meropenem 500 MG in Sodium Chloride 0.9% 100 ML IVPB SCH ×3 (02:00→17:06)
[2018-09-29] MEDS: Albuterol-Ipratrop 3 mg / 0.5 (3 ml) UD INH SCH ×4 (03:14→19:16)
[2018-09-29] MEDS: Sodium Chloride 0.9% 1,000 ML IV SCH ×2 (04:16→11:00)
--- NOTE | 2018-09-29 07:30 | CP.PCM.CON ---
History of Present Illness - History of Present Illness History of Present Illness: Pre Op Cardiac Risk assessment 68 y/o female patient with PMHx of DM2, hyperlipidemia, HTN was seen and evaluated in the ED for an infected 3rd digit. Patient states she was regularly following up with Dr. Reid for wound check. Patient states she was sent to the ED by Dr. Reid. Patient came to [facility] family has requested Dr. Geo Neal for podiatry consult. Patient states the wound worsened over the last several weeks. Patient complains of associated fever and chills. Patient denies any nausea or vomiting. patient denies any pain to the foot, chest pain, shortness of breath, or abdominal pain. PMH: DM2, Hyperlipidemia PSH: C/section twice. Allergies: Penicillins, vancomycin (anaphylaxis), Levofloxacin Social Hx: denies smoking, EtOH, or illicit drug use Review of Systems - Review of Systems All systems: reviewed and no additional remarkable complaints except Review of Systems: as per HPI Meds Allergies/Adverse Reactions: Allergies Allergy/AdvReac Type Severity Reaction Status Date / Time Penicillins Allergy RASH Verified 09/27/18 20:45 vancomycin Allergy RASH Verified 09/27/18 20:45 levofloxacin [From Levaquin] AdvReac SHORTNESS Verified 09/27/18 20:45 OF BREATH - Medications Medications: Current Medications Dextrose (Dextrose 50% Inj) 0 ml IV STAT PRN; Protocol PRN Reason: Hypoglycemia Protocol Dextrose (Glutose 15) 0 gm PO ONCE PRN; Protocol PRN Reason: Hypoglycemia Protocol Gabapentin (Neurontin) 300 mg PO TID [facility] Gemfibrozil (Lopid) 600 mg PO BID [facility] Glimepiride (Amaryl) 4 mg PO DAILY [facility] Glucagon (Glucagen Diagnostic Kit) 0 mg IM STAT PRN; Protocol PRN Reason: Hypoglycemia Protocol Heparin Sodium (Porcine) (Heparin) 5,000 units SC Q8 [facility] Last Admin: 09/28/18 05:59 Dose: 5,000 units Hydrochlorothiazide (Microzide) 12.5 mg PO DAILY [facility] Sodium Chloride (Sodium Chloride 0.9%) 1,000 mls @ 100 mls/hr IV .Q10H [facility] Last Admin: 09/28/18 06:00 Dose: 100 mls/hr Dextrose (Dextrose 5% In Water 1000 Ml) 1,000 mls @ 0 mls/hr IV .Q0M PRN; Protocol PRN Reason: Hypoglycemia Protocol Influenza Virus Vaccine (Flucelvax Quad [id number] Syr) 60 mcg IM .ONCE ONE Stop: 09/30/18 10:01 Insulin Glargine (Lantus) 25 unit SC HS [facility] Insulin Human Regular (Novolin R) 0 unit SC ACHS [facility]; Protocol Montelukast Sodium (Singulair) 10 mg PO DAILY [facility] Pneumococcal Polyvalent Vaccine (Pneumovax 23 Vaccine) 0.5 ml IM .ONCE ONE Stop: 09/30/18 10:01 Rosuvastatin Calcium (Crestor) 5 mg PO HS [facility] Physical Exam - Constitutional Appears: Well, No Acute Distress - Head Exam Head Exam: ATRAUMATIC, NORMOCEPHALIC - Eye Exam Eye Exam: Normal appearance - ENT Exam ENT Exam: Mucous Membranes Moist - Extremities Exam Additional comments: Bilateral Lower Extremity Focused Exam VASC: DP and PT 2/4 bilaterally, Cap refill less than 3 seconds to all digits except right 3rd, Temp gradient is warm to warm to the dorsum of the right foot, Mild edema noted NEURO: diminished gross and protective sensations. DERM: wound noted to the tip of the right 3rd digit, positive purulent drainage, with moderate erythema, positive probe to bone, positive malodor with positive fluctuance, third digit swollen and erythematous with slight discoloration noted MSK: No pain on palpation the right hallux. Muscle power intact 5/5 to all groups - Neurological Exam Neurological exam: Alert, Oriented x3 - Psychiatric Exam Psychiatric exam: Normal Affect, Normal Mood - Skin Skin Exam: Normal Color Past Patient History - Infectious Disease Hx of Infectious Diseases: None - Tetanus Immunizations Tetanus Immunization: Unknown - Past Medical History & Family History Past Medical History?: Yes - Past Social History Smoking Status: Never Smoked - CARDIAC Hx Cardiac Disorders: Yes Hx Hypercholesterolemia: Yes Hx Hypertension: Yes Hx Pacemaker: No - PULMONARY Hx Respiratory Disorders: No - NEUROLOGICAL Hx Neurological Disorder: Yes (diabetic neuropathy) - HEENT Hx HEENT Problems: Yes Hx Cataracts: Yes (bilat cataract sx) - RENAL Hx Chronic Kidney Disease: No - ENDOCRINE/METABOLIC Hx Endocrine Disorders: Yes Hx Diabetes Mellitus Type 2: Yes (iddm) - HEMATOLOGICAL/ONCOLOGICAL Hx Blood Disorders: No - INTEGUMENTARY Hx Dermatological Problems: Yes Other/Comment: black spots to both legs - MUSCULOSKELETAL/RHEUMATOLOGICAL Hx Falls: No - GASTROINTESTINAL Hx Gastrointestinal Disorders: Yes Hx Gastroesophageal Reflux: Yes Other/Comment: endoscopy with colon biopsy, hemorrhoids - GENITOURINARY/GYNECOLOGICAL Hx Genitourinary Disorders: No - PSYCHIATRIC Hx Substance Use: No - SURGICAL HISTORY Hx Surgeries: Yes Hx Section: Yes - ANESTHESIA Hx Anesthesia: Yes Hx Anesthesia Reactions: No Hx Malignant Hyperthermia: No Has any member of the family had a problem w/ anesthesia?: No Meds Allergies/Adverse Reactions: Allergies Allergy/AdvReac Type Severity Reaction Status Date / Time Penicillins Allergy RASH Verified 09/27/18 20:45 vancomycin Allergy RASH Verified 09/27/18 20:45 levofloxacin [From Levaquin] AdvReac SHORTNESS Verified 09/27/18 20:45 OF BREATH - Medications Medications: Current Medications Acetaminophen (Tylenol 325mg Tab) 650 mg PO Q6 PRN PRN Reason: Headache Last Admin: 09/28/18 12:18 Dose: 650 mg Albuterol/Ipratropium (Duoneb 3 Mg/0.5 Mg (3 Ml) Ud) 3 ml INH RQ6 [facility] Last Admin: 09/29/18 03:14 Dose: Not Given Dextrose (Dextrose 50% Inj) 0 ml IV STAT PRN; Protocol PRN Reason: Hypoglycemia Protocol Dextrose (Glutose 15) 0 gm PO ONCE PRN; Protocol PRN Reason: Hypoglycemia Protocol Docusate Sodium (Colace) 100 mg PO TID [facility] Gabapentin (Neurontin) 300 mg PO TID [facility] Last Admin: 09/28/18 17:01 Dose: 300 mg Gemfibrozil (Lopid) 600 mg PO BID [facility] Last Admin: 09/28/18 17:02 Dose: 600 mg Glimepiride (Amaryl) 4 mg PO DAILY [facility] Last Admin: 09/28/18 09:49 Dose: 4 mg Glucagon (Glucagen Diagnostic Kit) 0 mg IM STAT PRN; Protocol PRN Reason: Hypoglycemia Protocol Heparin Sodium (Porcine) (Heparin) 5,000 units SC Q8 [facility] Last Admin: 09/29/18 05:13 Dose: 5,000 units Hydrochlorothiazide (Microzide) 12.5 mg PO DAILY [facility] Last Admin: 09/28/18 09:49 Dose: 12.5 mg Sodium Chloride (Sodium Chloride 0.9%) 1,000 mls @ 100 mls/hr IV .Q10H [facility] Last Admin: 09/29/18 04:16 Dose: Not Given Dextrose (Dextrose 5% In Water 1000 Ml) 1,000 mls @ 0 mls/hr IV .Q0M PRN; Protocol PRN Reason: Hypoglycemia Protocol Daptomycin 400 mg/ Sodium (Chloride) 100 mls @ 100 mls/hr IV Q24H [facility]; Protocol Stop: 10/03/18 18:01 Last Admin: 09/28/18 18:37 Dose: 100 mls/hr Meropenem 500 mg/ Sodium (Chloride) 100 mls @ 100 mls/hr IVPB Q8H [facility]; Protocol Last Admin: 09/29/18 02:00 Dose: 100 mls/hr Influenza Virus Vaccine (Flucelvax Quad [id number] Syr) 60 mcg IM .ONCE ONE Stop: 09/30/18 10:01 Insulin Glargine (Lantus) 25 unit SC [facility] Last Admin: 09/28/18 21:27 Dose: 25 u Insulin Human Regular (Novolin R) 0 unit SC [facility]; Protocol Last Admin: 09/28/18 21:28 Dose: Not Given Loratadine (Claritin) 10 mg PO DAILY [facility] Last Admin: 09/28/18 21:26 Dose: 10 mg Montelukast Sodium (Singulair) 10 mg PO DAILY [facility] Last Admin: 09/28/18 09:49 Dose: 10 mg Pneumococcal Polyvalent Vaccine (Pneumovax 23 Vaccine) 0.5 ml IM .ONCE ONE Stop: 09/30/18 10:01 Promethazine HCl (Phenergan Syrup) 6.25 mg PO Q6 PRN PRN Reason: Cough Last Admin: 09/28/18 10:22 Dose: 6.25 mg Rosuvastatin Calcium (Crestor) 5 mg PO [facility] Last Admin: 09/28/18 21:26 Dose: 5 mg Results - Vital Signs Recent Vital Signs: Last Vital Signs Temp 98.7 F 09/29/18 00:00 Pulse 88 09/29/18 00:00 Resp 20 09/29/18 00:00 BP 120/65 09/29/18 00:00 Pulse Ox 98 09/29/18 00:00 - Labs Result Diagrams: 09/27/18 21:49 09/27/18 21:49 Labs: Laboratory Results - last 24 hr 09/28/18 09/28/18 09/28/18 08:14 11:22 16:35 POC Glucose (mg/dL) 182 H 330 H 348 H 09/28/18 09/29/18 21:01 06:59 POC Glucose (mg/dL) 228 H 206 H Assessment & Plan - Assessment and Plan (Free Text) Assessment: 68 F with hx of DM2, HTN with no active cardiac symptoms Recent stress test at [facility] 07/21/18: Normal ECHO 07/21/18: EF 45% Stable hemodynamics Likely cardiac risk for toe amputation or foot surgery moderate Recommend to proceed with the surgery if indicated
[2018-09-29] MEDS: (Novolin R) Insulin Human Regular 100 units/ml vial SC SCH ×3 (08:30→17:07)
[2018-09-29] MEDS: Promethazine 6.25 MG/5 ML CUP PO PRN ×2 (08:55→17:07)
[2018-09-29 12:14] LABS: ALBUMIN 3.4 g/dL (3.5-5.0); ALT/SGPT 6 U/L (9-52); AST/SGOT 15 U/L (14-36); BLOOD UREA NITROGEN 13 mg/dL (7-17); GFR NON-AFRICAN AMERICAN > 60
--- NOTE | 2018-09-29 15:40 | CP.PCM.PN ---
Subjective - Date & Time of Evaluation Date of Evaluation: 09/29/18 Time of Evaluation: 15:36 - Subjective Subjective: Pt seen at bedside for f/u right 3rd digit ulcer. Wound probes to bone. X-Rays shows destructive change to distal phalanx right 3rd digit. 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 Pt elects for amp of right 3rd d igit. Pt understands all risks and alternatives and consents to right 3rd digit amp on 10/01/2018 at 3:30 PM. Pt understands that this is a limb salvage operation and that if healing is compromised future surgery and/or limbloss is possible. Pt was cleared by cardiology. Medicine to see and clear pt. Pre op orders will be put in tomorrow for NPO and holding of Heparin. Objective - Vital Signs/Intake and Output Vital Signs (last 24 hours): Temp Pulse Resp BP Pulse Ox 98.9 F 90 20 134/79 97 09/29/18 07:47 09/29/18 07:47 09/29/18 07:47 09/29/18 07:47 09/29/18 07:47 Intake and Output: 09/29/18 09/29/18 06:59 18:59 Intake Total 1280 Balance 1280 - Medications Medications: Current Medications Acetaminophen (Tylenol 325mg Tab) 650 mg PO Q6 PRN PRN Reason: Headache Last Admin: 09/28/18 12:18 Dose: 650 mg Albuterol/Ipratropium (Duoneb 3 Mg/0.5 Mg (3 Ml) Ud) 3 ml INH RQ6 [facility] Last Admin: 09/29/18 13:50 Dose: 3 ml Dextrose (Dextrose 50% Inj) 0 ml IV STAT PRN; Protocol PRN Reason: Hypoglycemia Protocol Dextrose (Glutose 15) 0 gm PO ONCE PRN; Protocol PRN Reason: Hypoglycemia Protocol Docusate Sodium (Colace) 100 mg PO TID [facility] Last Admin: 09/29/18 14:14 Dose: 100 mg Gabapentin (Neurontin) 300 mg PO TID [facility] Last Admin: 09/29/18 14:14 Dose: 300 mg Gemfibrozil (Lopid) 600 mg PO BID [facility] Last Admin: 09/29/18 11:26 Dose: 600 mg Glimepiride (Amaryl) 4 mg PO DAILY [facility] Last Admin: 09/29/18 11:25 Dose: 4 mg Glucagon (Glucagen Diagnostic Kit) 0 mg IM STAT PRN; Protocol PRN Reason: Hypoglycemia Protocol Heparin Sodium (Porcine) (Heparin) 5,000 units SC Q8 [facility] Last Admin: 09/29/18 14:13 Dose: 5,000 units Hydrochlorothiazide (Microzide) 12.5 mg PO DAILY [facility] Last Admin: 09/29/18 11:26 Dose: 12.5 mg Sodium Chloride (Sodium Chloride 0.9%) 1,000 mls @ 100 mls/hr IV .Q10H [facility] Last Admin: 09/29/18 11:00 Dose: 100 mls/hr Dextrose (Dextrose 5% In Water 1000 Ml) 1,000 mls @ 0 mls/hr IV .Q0M PRN; Protocol PRN Reason: Hypoglycemia Protocol Daptomycin 400 mg/ Sodium (Chloride) 100 mls @ 100 mls/hr IV Q24H [facility]; Protocol Stop: 10/03/18 18:01 Last Admin: 09/28/18 18:37 Dose: 100 mls/hr Meropenem 500 mg/ Sodium (Chloride) 100 mls @ 100 mls/hr IVPB Q8H [facility]; Protocol Last Admin: 09/29/18 10:30 Dose: 100 mls/hr Influenza Virus Vaccine (Flucelvax Quad [id number] Syr) 60 mcg IM .ONCE ONE Stop: 09/30/18 10:01 Insulin Glargine (Lantus) 25 unit SC [facility] Last Admin: 09/28/18 21:27 Dose: 25 u Insulin Human Regular (Novolin R) 0 unit SC ACHS [facility]; Protocol Last Admin: 09/29/18 12:48 Dose: 6 units Loratadine (Claritin) 10 mg PO DAILY [facility] Last Admin: 09/29/18 11:25 Dose: 10 mg Montelukast Sodium (Singulair) 10 mg PO DAILY [facility] Last Admin: 09/29/18 11:26 Dose: 10 mg Pneumococcal Polyvalent Vaccine (Pneumovax 23 Vaccine) 0.5 ml IM .ONCE ONE Stop: 09/30/18 10:01 Promethazine HCl (Phenergan Syrup) 6.25 mg PO Q6 PRN PRN Reason: Cough Last Admin: 09/29/18 08:55 Dose: 6.25 mg Rosuvastatin Calcium (Crestor) 5 mg PO HS [facility] Last Admin: 09/28/18 21:26 Dose: 5 mg - Labs Labs: 09/27/18 21:49 09/29/18 10:15
[2018-09-29] MEDS ORDERED: (Lantus) Insulin Glargine, Recombinant SC SCH ×2 (19:05→22:00)
--- NOTE | 2018-09-29 21:13 | CARD ---
APPROVED REPORT Date of service: 09/27/2018 EKG Measurement Heart [id number] <Conclusion> Sinus tachycardia Cannot rule out Anterior infarct, age undetermined ST & T wave abnormality, consider lateral ischemia Abnormal ECG
[2018-09-29] MEDS: (Novolog) Insulin Aspart, Recombinant 100 u/ml 10 ml vial SC SCH (21:29)
--- NOTE | 2018-09-29 23:38 | CP.PCM.PN ---
Subjective - Date & Time of Evaluation Date of Evaluation: 09/29/18 Time of Evaluation: 18:30 - Subjective Subjective: Pre Op Cardiac Risk assessment 68 y/o female patient with PMHx of DM2, hyperlipidemia, HTN was seen and evaluated in the ED for an infected 3rd digit. Patient states she was regularly following up with Dr. Reid for wound check. Patient states she was sent to the ED by Dr. Reid. Patient came to [facility] family has requested Dr. Geo Neal for podiatry consult. Patient states the wound worsened over the last several weeks. Patient complains of associated fever and chills. Patient denies any nausea or vomiting. patient denies any pain to the foot, chest pain, shortness of breath, or abdominal pain. PMH: DM2, Hyperlipidemia PSH: C/section twice. Allergies: Penicillins, vancomycin (anaphylaxis), Levofloxacin Social Hx: denies smoking, EtOH, or illicit drug use Review of Systems - Review of Systems All systems: reviewed and no additional remarkable complaints except Review of Systems: as per HPI Meds Allergies/Adverse Reactions: Allergies Allergy/AdvReac Type Severity Reaction Status Date / Time Penicillins Allergy RASH Verified 09/27/18 20:45 vancomycin Allergy RASH Verified 09/27/18 20:45 levofloxacin [From Levaquin] AdvReac SHORTNESS Verified 09/27/18 20:45 OF BREATH - Medications Medications: Current Medications Dextrose (Dextrose 50% Inj) 0 ml IV STAT PRN; Protocol PRN Reason: Hypoglycemia Protocol Dextrose (Glutose 15) 0 gm PO ONCE PRN; Protocol PRN Reason: Hypoglycemia Protocol Gabapentin (Neurontin) 300 mg PO TID [facility] Gemfibrozil (Lopid) 600 mg PO BID [facility] Glimepiride (Amaryl) 4 mg PO DAILY [facility] Glucagon (Glucagen Diagnostic Kit) 0 mg IM STAT PRN; Protocol PRN Reason: Hypoglycemia Protocol Heparin Sodium (Porcine) (Heparin) 5,000 units SC Q8 [facility] Last Admin: 09/28/18 05:59 Dose: 5,000 units Hydrochlorothiazide (Microzide) 12.5 mg PO DAILY [facility] Sodium Chloride (Sodium Chloride 0.9%) 1,000 mls @ 100 mls/hr IV .Q10H [facility] Last Admin: 09/28/18 06:00 Dose: 100 mls/hr Dextrose (Dextrose 5% In Water 1000 Ml) 1,000 mls @ 0 mls/hr IV .Q0M PRN; Protocol PRN Reason: Hypoglycemia Protocol Influenza Virus Vaccine (Flucelvax Quad [id number] Syr) 60 mcg IM .ONCE ONE Stop: 09/30/18 10:01 Insulin Glargine (Lantus) 25 unit SC HS [facility] Insulin Human Regular (Novolin R) 0 unit SC ACHS [facility]; Protocol Montelukast Sodium (Singulair) 10 mg PO DAILY [facility] Pneumococcal Polyvalent Vaccine (Pneumovax 23 Vaccine) 0.5 ml IM .ONCE ONE Stop: 09/30/18 10:01 Rosuvastatin Calcium (Crestor) 5 mg PO HS [facility] Physical Exam - Constitutional Appears: Well, No Acute Distress - Head Exam Head Exam: ATRAUMATIC, NORMOCEPHALIC - Eye Exam Eye Exam: Normal appearance - ENT Exam ENT Exam: Mucous Membranes Moist - Extremities Exam Additional comments: Bilateral Lower Extremity Focused Exam VASC: DP and PT 2/4 bilaterally, Cap refill less than 3 seconds to all digits except right 3rd, Temp gradient is warm to warm to the dorsum of the right foot, Mild edema noted NEURO: diminished gross and protective sensations. DERM: wound noted to the tip of the right 3rd digit, positive purulent drainage, with moderate erythema, positive probe to bone, positive malodor with positive fluctuance, third digit swollen and erythematous with slight discoloration noted MSK: No pain on palpation the right hallux. Muscle power intact 5/5 to all groups - Neurological Exam Neurological exam: Alert, Oriented x3 - Psychiatric Exam Psychiatric exam: Normal Affect, Normal Mood - Skin Skin Exam: Normal Color Past Patient History - Infectious Disease Hx of Infectious Diseases: None - Tetanus Immunizations Tetanus Immunization: Unknown - Past Medical History & Family History Past Medical History?: Yes - Past Social History Smoking Status: Never Smoked - CARDIAC Hx Cardiac Disorders: Yes Hx Hypercholesterolemia: Yes Hx Hypertension: Yes Hx Pacemaker: No - PULMONARY Hx Respiratory Disorders: No - NEUROLOGICAL Hx Neurological Disorder: Yes (diabetic neuropathy) - HEENT Hx HEENT Problems: Yes Hx Cataracts: Yes (bilat cataract sx) - RENAL Hx Chronic Kidney Disease: No - ENDOCRINE/METABOLIC Hx Endocrine Disorders: Yes Hx Diabetes Mellitus Type 2: Yes (iddm) - HEMATOLOGICAL/ONCOLOGICAL Hx Blood Disorders: No - INTEGUMENTARY Hx Dermatological Problems: Yes Other/Comment: black spots to both legs - MUSCULOSKELETAL/RHEUMATOLOGICAL Hx Falls: No - GASTROINTESTINAL Hx Gastrointestinal Disorders: Yes Hx Gastroesophageal Reflux: Yes Other/Comment: endoscopy with colon biopsy, hemorrhoids - GENITOURINARY/GYNECOLOGICAL Hx Genitourinary Disorders: No - PSYCHIATRIC Hx Substance Use: No - SURGICAL HISTORY Hx Surgeries: Yes Hx Section: Yes - ANESTHESIA Hx Anesthesia: Yes Hx Anesthesia Reactions: No Hx Malignant Hyperthermia: No Has any member of the family had a problem w/ anesthesia?: No Meds Allergies/Adverse Reactions: Allergies Allergy/AdvReac Type Severity Reaction Status Date / Time Penicillins Allergy RASH Verified 09/27/18 20:45 vancomycin Allergy RASH Verified 09/27/18 20:45 levofloxacin [From Levaquin] AdvReac SHORTNESS Verified 09/27/18 20:45 OF BREATH - Medications Medications: Current Medications Acetaminophen (Tylenol 325mg Tab) 650 mg PO Q6 PRN PRN Reason: Headache Last Admin: 09/28/18 12:18 Dose: 650 mg Albuterol/Ipratropium (Duoneb 3 Mg/0.5 Mg (3 Ml) Ud) 3 ml INH RQ6 [facility] Last Admin: 09/29/18 03:14 Dose: Not Given Dextrose (Dextrose 50% Inj) 0 ml IV STAT PRN; Protocol PRN Reason: Hypoglycemia Protocol Dextrose (Glutose 15) 0 gm PO ONCE PRN; Protocol PRN Reason: Hypoglycemia Protocol Docusate Sodium (Colace) 100 mg PO TID [facility] Gabapentin (Neurontin) 300 mg PO TID [facility] Last Admin: 09/28/18 17:01 Dose: 300 mg Gemfibrozil (Lopid) 600 mg PO BID [facility] Last Admin: 09/28/18 17:02 Dose: 600 mg Glimepiride (Amaryl) 4 mg PO DAILY [facility] Last Admin: 09/28/18 09:49 Dose: 4 mg Glucagon (Glucagen Diagnostic Kit) 0 mg IM STAT PRN; Protocol PRN Reason: Hypoglycemia Protocol Heparin Sodium (Porcine) (Heparin) 5,000 units SC Q8 [facility] Last Admin: 09/29/18 05:13 Dose: 5,000 units Hydrochlorothiazide (Microzide) 12.5 mg PO DAILY [facility] Last Admin: 09/28/18 09:49 Dose: 12.5 mg Sodium Chloride (Sodium Chloride 0.9%) 1,000 mls @ 100 mls/hr IV .Q10H [facility] Last Admin: 09/29/18 04:16 Dose: Not Given Dextrose (Dextrose 5% In Water 1000 Ml) 1,000 mls @ 0 mls/hr IV .Q0M PRN; Protocol PRN Reason: Hypoglycemia Protocol Daptomycin 400 mg/ Sodium (Chloride) 100 mls @ 100 mls/hr IV Q24H [facility]; Protocol Stop: 10/03/18 18:01 Last Admin: 09/28/18 18:37 Dose: 100 mls/hr Meropenem 500 mg/ Sodium (Chloride) 100 mls @ 100 mls/hr IVPB Q8H [facility]; Protocol Last Admin: 09/29/18 02:00 Dose: 100 mls/hr Influenza Virus Vaccine (Flucelvax Quad [id number] Syr) 60 mcg IM .ONCE ONE Stop: 09/30/18 10:01 Insulin Glargine (Lantus) 25 unit SC [facility] Last Admin: 09/28/18 21:27 Dose: 25 u Insulin Human Regular (Novolin R) 0 unit SC [facility]; Protocol Last Admin: 09/28/18 21:28 Dose: Not Given Loratadine (Claritin) 10 mg PO DAILY [facility] Last Admin: 09/28/18 21:26 Dose: 10 mg Montelukast Sodium (Singulair) 10 mg PO DAILY [facility] Last Admin: 09/28/18 09:49 Dose: 10 mg Pneumococcal Polyvalent Vaccine (Pneumovax 23 Vaccine) 0.5 ml IM .ONCE ONE Stop: 09/30/18 10:01 Promethazine HCl (Phenergan Syrup) 6.25 mg PO Q6 PRN PRN Reason: Cough Last Admin: 09/28/18 10:22 Dose: 6.25 mg Rosuvastatin Calcium (Crestor) 5 mg PO [facility] Last Admin: 09/28/18 21:26 Dose: 5 mg Results - Vital Signs Recent Vital Signs: Last Vital Signs Temp 98.7 F 09/29/18 00:00 Pulse 88 09/29/18 00:00 Resp 20 09/29/18 00:00 BP 120/65 09/29/18 00:00 Pulse Ox 98 09/29/18 00:00 - Labs Result Diagrams: 09/27/18 21:49 09/27/18 21:49 Labs: Laboratory Results - last 24 hr 09/28/18 09/28/18 09/28/18 08:14 11:22 16:35 POC Glucose (mg/dL) 182 H 330 H 348 H 09/28/18 09/29/18 21:01 06:59 POC Glucose (mg/dL) 228 H 206 H Assessment & Plan - Assessment and Plan (Free Text) Assessment: 68 F with hx of DM2, HTN with no active cardiac symptoms Recent stress test at [place] 07/21/18: Normal ECHO 07/21/18: EF 45% Stable hemodynamics Likely cardiac risk for toe amputation or foot surgery moderate Recommend to proceed with the surgery if indicated Objective - Vital Signs/Intake and Output Vital Signs (last 24 hours): Temp Pulse Resp BP Pulse Ox 99.2 F 114 H 20 129/74 98 09/29/18 17:01 09/29/18 17:01 09/29/18 17:01 09/29/18 17:01 09/29/18 17:01 Intake and Output: 09/29/18 09/30/18 18:59 06:59 Intake Total 1300 Balance 1300 - Medications Medications: Current Medications Acetaminophen (Tylenol 325mg Tab) 650 mg PO Q6 PRN PRN Reason: Headache Last Admin: 09/28/18 12:18 Dose: 650 mg Albuterol/Ipratropium (Duoneb 3 Mg/0.5 Mg (3 Ml) Ud) 3 ml INH RQ6 [facility] Last Admin: 09/29/18 19:16 Dose: Not Given Dextrose (Dextrose 50% Inj) 0 ml IV STAT PRN; Protocol PRN Reason: Hypoglycemia Protocol Dextrose (Glutose 15) 0 gm PO ONCE PRN; Protocol PRN Reason: Hypoglycemia Protocol Docusate Sodium (Colace) 100 mg PO TID [facility] Last Admin: 09/29/18 19:11 Dose: 100 mg Gabapentin (Neurontin) 300 mg PO TID [facility] Last Admin: 09/29/18 17:08 Dose: 300 mg Gemfibrozil (Lopid) 600 mg PO BID [facility] Last Admin: 09/29/18 17:08 Dose: 600 mg Glucagon (Glucagen Diagnostic Kit) 0 mg IM STAT PRN; Protocol PRN Reason: Hypoglycemia Protocol Heparin Sodium (Porcine) (Heparin) 5,000 units SC Q8 [facility] Last Admin: 09/29/18 21:27 Dose: 5,000 units Sodium Chloride (Sodium Chloride 0.9%) 1,000 mls @ 100 mls/hr IV .Q10H [facility] Last Admin: 09/29/18 11:00 Dose: 100 mls/hr Dextrose (Dextrose 5% In Water 1000 Ml) 1,000 mls @ 0 mls/hr IV .Q0M PRN; Protocol PRN Reason: Hypoglycemia Protocol Daptomycin 400 mg/ Sodium (Chloride) 100 mls @ 100 mls/hr IV Q24H [facility]; Protocol Stop: 10/03/18 18:01 Last Admin: 09/29/18 18:30 Dose: 100 mls/hr Meropenem 500 mg/ Sodium (Chloride) 100 mls @ 100 mls/hr IVPB Q8H [facility]; Protocol Last Admin: 09/29/18 17:06 Dose: 100 mls/hr Influenza Virus Vaccine (Flucelvax Quad [id number] Syr) 60 mcg IM .ONCE ONE Stop: 09/30/18 10:01 Insulin Aspart (Novolog) 0 unit SC ACHS [facility] Last Admin: 09/29/18 21:29 Dose: Not Given Insulin Aspart (Novolog) 14 unit SC AC [facility] Insulin Glargine (Lantus) 34 unit SC HS [facility] Last Admin: 09/29/18 21:28 Dose: 34 u Loratadine (Claritin) 10 mg PO DAILY [facility] Last Admin: 09/29/18 11:25 Dose: 10 mg Montelukast Sodium (Singulair) 10 mg PO DAILY [facility] Last Admin: 09/29/18 11:26 Dose: 10 mg Pneumococcal Polyvalent Vaccine (Pneumovax 23 Vaccine) 0.5 ml IM .ONCE ONE Stop: 09/30/18 10:01 Promethazine HCl (Phenergan Syrup) 6.25 mg PO Q6 PRN PRN Reason: Cough Last Admin: 09/29/18 17:07 Dose: 6.25 mg Rosuvastatin Calcium (Crestor) 5 mg PO HS [facility] Last Admin: 09/29/18 21:27 Dose: 5 mg Sitagliptin Phosphate (Januvia) 100 mg PO DAILY [facility] - Labs Labs: 09/27/18 21:49 09/29/18 10:15
[2018-09-30] MEDS: Meropenem 500 MG in Sodium Chloride 0.9% 100 ML IVPB SCH ×3 (01:29→17:51)
[2018-09-30] MEDS: Sodium Chloride 0.9% 1,000 ML IV SCH ×2 (01:34→11:03)
[2018-09-30] MEDS: Albuterol-Ipratrop 3 mg / 0.5 (3 ml) UD INH SCH ×3 (01:38→19:55)
--- NOTE | 2018-09-30 06:48 | CP.PCM.CON ---
History of Present Illness - History of Present Illness History of Present Illness: Pgy3 Internal Medicine Resident Endocrinology Consult note for Dr. Pearce Reason for consult: uncontrolled sugars 68yo [place] female PMHx CAD, DM2, HLD, HTN, toe nail avulsion, DM neuropathy, constipation, osteomyelitis, medication noncompliance with multiple hospitalizations sent in by podiatry Dr Reid for cellulitis of 3rd digit Right foot. Endocrinology consulted for DM management. Patient reports she was [place] [facility] was [place] for cellulitis of 3rd digit Right foot. Patient states the wound worsened over the last several weeks and she began to experience subjective fever and chills and was thus sent to ER. This AM patient seen and examined at bedside. Nursing reported no acute events overnight. Patient reports since admission she has symptomatically improved however she still complains of b/l LE neuropathic pain and a headache. Patient is aware she is scheduled for OR tomorrow 10/01. 12point ROS as per above otherwise negative PMHx: CAD, DM2, HLD, HTN, toe nail avulsion, DM neuropathy, constipation, osteomyelitis, medication noncompliance PSHx: x 2 PHospHx: multiple [place] [facility] SocHx: denies tobacco, alcohol and illicit drug use; lives at home with family FamHx: Father, from [place] at 61yo; hx of DM/HTN/CAD Allergies: PCN, vancomycin, levaquin PMD: Navneet - last seen a few months ago Cardio: Val Podiatry: Jeanette - last seen Thursday09/27/18 Endocrinology: patient couldn't remember name; seen at [facility] outpatient on [address] in [place] - last seen 2 mo ago Optho: Dalton - last seen a few months ago Review of Systems - Review of Systems All systems: reviewed and no additional remarkable complaints except Review of Systems: as per HPI Past Patient History - Infectious Disease Hx of Infectious Diseases: None - Tetanus Immunizations Tetanus Immunization: Unknown - Past Medical History & Family History Past Medical History?: Yes - Past Social History Smoking Status: Never Smoked - CARDIAC Hx Cardiac Disorders: Yes Hx Hypercholesterolemia: Yes Hx Hypertension: Yes Hx Pacemaker: No - PULMONARY Hx Respiratory Disorders: No - NEUROLOGICAL Hx Neurological Disorder: Yes (diabetic neuropathy) - HEENT Hx HEENT Problems: Yes Hx Cataracts: Yes (bilat cataract sx) - RENAL Hx Chronic Kidney Disease: No - ENDOCRINE/METABOLIC Hx Endocrine Disorders: Yes Hx Diabetes Mellitus Type 2: Yes (iddm) - HEMATOLOGICAL/ONCOLOGICAL Hx Blood Disorders: No - INTEGUMENTARY Hx Dermatological Problems: Yes Other/Comment: black spots to both legs - MUSCULOSKELETAL/RHEUMATOLOGICAL Hx Falls: No - GASTROINTESTINAL Hx Gastrointestinal Disorders: Yes Hx Gastroesophageal Reflux: Yes Other/Comment: endoscopy with colon biopsy, hemorrhoids - GENITOURINARY/GYNECOLOGICAL Hx Genitourinary Disorders: No - PSYCHIATRIC Hx Substance Use: No - SURGICAL HISTORY Hx Surgeries: Yes Hx Section: Yes - ANESTHESIA Hx Anesthesia: Yes Hx Anesthesia Reactions: No Hx Malignant Hyperthermia: No Has any member of the family had a problem w/ anesthesia?: No Meds Allergies/Adverse Reactions: Allergies Allergy/AdvReac Type Severity Reaction Status Date / Time Penicillins Allergy RASH Verified 09/27/18 20:45 vancomycin Allergy RASH Verified 09/27/18 20:45 levofloxacin [From Levaquin] AdvReac SHORTNESS Verified 09/27/18 20:45 OF BREATH - Medications Medications: Current Medications Acetaminophen (Tylenol 325mg Tab) 650 mg PO Q6 PRN PRN Reason: Headache Last Admin: 09/28/18 12:18 Dose: 650 mg Albuterol/Ipratropium (Duoneb 3 Mg/0.5 Mg (3 Ml) Ud) 3 ml INH RQ6 [facility] Last Admin: 09/30/18 01:38 Dose: Not Given Dextrose (Dextrose 50% Inj) 0 ml IV STAT PRN; Protocol PRN Reason: Hypoglycemia Protocol Dextrose (Glutose 15) 0 gm PO ONCE PRN; Protocol PRN Reason: Hypoglycemia Protocol Docusate Sodium (Colace) 100 mg PO TID [facility] Last Admin: 09/29/18 19:11 Dose: 100 mg Gabapentin (Neurontin) 300 mg PO TID [facility] Last Admin: 09/29/18 17:08 Dose: 300 mg Gemfibrozil (Lopid) 600 mg PO BID [facility] Last Admin: 09/29/18 17:08 Dose: 600 mg Glucagon (Glucagen Diagnostic Kit) 0 mg IM STAT PRN; Protocol PRN Reason: Hypoglycemia Protocol Heparin Sodium (Porcine) (Heparin) 5,000 units SC Q8 [facility] Last Admin: 09/30/18 05:38 Dose: 5,000 units Sodium Chloride (Sodium Chloride 0.9%) 1,000 mls @ 100 mls/hr IV .Q10H [facility] Last Admin: 09/30/18 01:34 Dose: 100 mls/hr Dextrose (Dextrose 5% In Water 1000 Ml) 1,000 mls @ 0 mls/hr IV .Q0M PRN; Protocol PRN Reason: Hypoglycemia Protocol Daptomycin 400 mg/ Sodium (Chloride) 100 mls @ 100 mls/hr IV Q24H [facility]; Protocol Stop: 10/03/18 18:01 Last Admin: 09/29/18 18:30 Dose: 100 mls/hr Meropenem 500 mg/ Sodium (Chloride) 100 mls @ 100 mls/hr IVPB Q8H [facility]; Protocol Last Admin: 09/30/18 01:29 Dose: 100 mls/hr Influenza Virus Vaccine (Flucelvax Quad [id number] Syr) 60 mcg IM .ONCE ONE Stop: 09/30/18 10:01 Insulin Aspart (Novolog) 0 unit SC [facility] Last Admin: 09/29/18 21:29 Dose: Not Given Insulin Aspart (Novolog) 14 unit SC AC [facility] Insulin Glargine (Lantus) 34 unit SC [facility] Last Admin: 09/29/18 21:28 Dose: 34 u Loratadine (Claritin) 10 mg PO DAILY [facility] Last Admin: 09/29/18 11:25 Dose: 10 mg Montelukast Sodium (Singulair) 10 mg PO DAILY [facility] Last Admin: 09/29/18 11:26 Dose: 10 mg Pneumococcal Polyvalent Vaccine (Pneumovax 23 Vaccine) 0.5 ml IM .ONCE ONE Stop: 09/30/18 10:01 Promethazine HCl (Phenergan Syrup) 6.25 mg PO Q6 PRN PRN Reason: Cough Last Admin: 09/29/18 17:07 Dose: 6.25 mg Rosuvastatin Calcium (Crestor) 5 mg PO [facility] Last Admin: 09/29/18 21:27 Dose: 5 mg Sitagliptin Phosphate (Januvia) 100 mg PO DAILY [facility] Physical Exam - Constitutional Appears: Non-toxic, No Acute Distress - Head Exam Head Exam: ATRAUMATIC, NORMAL INSPECTION, NORMOCEPHALIC - Eye Exam Eye Exam: EOMI, Normal appearance, PERRL. absent: Conjunctival injection, Scleral icterus - ENT Exam ENT Exam: Mucous Membranes Moist - Neck Exam Neck exam: Positive for: Full Rom, Normal Inspection - Respiratory Exam Respiratory Exam: Clear to Auscultation Bilateral, NORMAL BREATHING PATTERN. absent: Accessory Muscle Use, Rales, Rhonchi, Wheezes - Cardiovascular Exam Cardiovascular Exam: RRR, +S1, +S2 - GI/Abdominal Exam GI & Abdominal Exam: Normal Bowel Sounds, Soft. absent: Firm, Guarding, Rigid, Tenderness - Extremities Exam Additional comments: R foot dressings noted - Neurological Exam Neurological exam: Alert, CN II-XII Intact, Oriented x3 - Psychiatric Exam Psychiatric exam: Normal Affect, Normal Mood - Skin Skin Exam: Normal Color, Warm Results - Vital Signs Recent Vital Signs: Last Vital Signs Temp 99.9 F H 09/30/18 00:00 Pulse 100 H 09/30/18 00:00 Resp 20 09/30/18 00:00 BP 136/77 09/30/18 00:00 Pulse Ox 95 09/30/18 00:00 - Labs Result Diagrams: 09/27/18 21:49 09/30/18 06:30 Labs: Laboratory Results - last 24 hr 09/29/18 09/29/18 09/29/18 06:59 10:15 11:07 Sodium 134 Potassium 3.4 L Chloride 101 Carbon Dioxide 27 Anion Gap 10 BUN 13 Creatinine 0.7 Est GFR ( Amer) > 60 Est GFR (Non-Af Amer) > 60 POC Glucose (mg/dL) 206 H 302 H Random Glucose 306 H Calcium 9.0 Phosphorus 2.7 Magnesium 1.9 Total Bilirubin 0.2 AST 15 ALT 6 L Alkaline Phosphatase 72 Total Protein 6.8 Albumin 3.4 L Globulin 3.4 Albumin/Globulin Ratio 1.0 09/29/18 09/29/18 16:31 21:23 Sodium Potassium Chloride Carbon Dioxide Anion Gap BUN Creatinine Est GFR ( Amer) Est GFR (Non-Af Amer) POC Glucose (mg/dL) 317 H 262 H Random Glucose Calcium Phosphorus Magnesium Total Bilirubin AST ALT Alkaline Phosphatase Total Protein Albumin Globulin Albumin/Globulin Ratio Assessment & Plan - Assessment and Plan (Free Text) Assessment: 68yo [place] female PMHx CAD, DM2, HLD, HTN, toe nail avulsion, DM neuropathy, constipation, osteomyelitis, medication noncompliance with multiple hospitalizations sent in by podiatry Dr Reid for cellulitis of 3rd digit Right foot. Endocrinology consulted for DM management. Plan: Uncontrolled IDDM Patient's blood work, imaging, and vitals reviewed. HgbA1c this AM 11.7. As patient is due for OR tomorrow and will be NPO past midnight we will start the patient on D51/2NS @ 100cc/hr at midnight and HOLD her standing Novolog 14u sc ac at midnight tonight. We will also HOLD her Lantus 34U at night and give her Lantus 20U sc hs instead. We will continue RISS at this time for coverage. Patient will be resumed on home medications after procedure. Patient counseled thoroughly on the importance of medication compliance. Will continue to monitor patient closely. Discussed with Dr. Ramses Lindsay PGY3
[2018-09-30 06:58] LABS: ALBUMIN 3.5 g/dL (3.5-5.0); AST/SGOT 14 U/L (14-36); BLOOD UREA NITROGEN 11 mg/dL (7-17); CALCIUM 9.1 mg/dl (8.6-10.4); GFR NON-AFRICAN AMERICAN > 60; HDL CHOLESTEROL 40 mg/dL (30-70)
[2018-09-30 07:09] LABS: ALT/SGPT < 6 U/L (9-52); LDL CHOLESTEROL 80 mg/dL (0-129)
[2018-09-30] MEDS ORDERED: (Novolog) Insulin Aspart, Recombinant 100 u/ml 10 ml vial SC SCH (07:30)
[2018-09-30] MEDS: (Novolog) Insulin Aspart, Recombinant 100 u/ml 10 ml vial SC SCH ×7 (08:00→21:52)
--- NOTE | 2018-09-30 09:18 | CON ---
DATE: 09/29/2018 ENDOCRINOLOGY CONSULT LOCATION: Room 371. HISTORY OF PRESENT ILLNESS: This is a 68-year-old female with known history of type 2 insulin-requiring diabetes, presenting here with a right toe nonhealing ulceration and associated cellulitis and is now being referred for diabetic evaluation and management because of persistent hyperglycemic accelerations as noted thereof. PAST MEDICAL HISTORY: History of type 2 insulin-requiring diabetes, on a combination therapy with Amaryl taken as 4 mg daily and Janumet b.i.d. with insulin combination of Lantus taken as 50 units at bedtime and Humalog taken as 15 units t.i.d., history of hypertension and dyslipidemia, history of coronary artery disease with peripheral vasculopathy and severe diabetic polyneuropathy. FAMILY HISTORY: Positive for diabetes and hypertension. SOCIAL HISTORY: The patient has a supportive family. No known substance use. REVIEW OF SYSTEMS: As mentioned above admits to generalized body weakness with episodic bouts of dizziness and lightheadedness, and suboptimal energy level. Also admits to recent visual blurring with bifrontal headaches. No chest pains or palpitations. Also admits to episodic shortness of breath, especially on exertion. Her oral intake has been variable with nausea, dyspepsia, and habitual constipation. Also admits to recent polyuria, nocturia, and polydipsia. Also admits to lower extremity painful paresthesia, especially nocturnally. Moreover admits to a nonhealing right third toe ulcer with purulent discharge and supervening redness in the right foot over the last week or so prior to admission, has a recent second toe infection also in the right foot which apparently healed as noted. PHYSICAL EXAMINATION: GENERAL: Overweight female, in no apparent distress. VITAL SIGNS: Blood pressure of 148/80, pulse of 100 beats per minute and regular, temperature 100, respirations 20, height 5 feet 2 inches, weight is 166 pounds. HEENT: Head, normocephalic. Eyes: Anicteric with pink conjunctivae. Funduscopy not possible at this time. Ears, nose and throat: Otherwise normal. NECK: Supple. Thyroid gland is in normal size. No carotid bruits or cervical adenopathy. CARDIOPULMONARY: Some adynamic precordium. S1 and S2, rapid and regular. LUNGS: Clear to auscultation. ABDOMEN: Flat and soft with positive bowel sounds. EXTREMITIES: No peripheral edema. Pulses are +2 bilaterally. The right lower extremity shows erythema and edema of the dorsum of the right foot with an ulceration in the third digit of the right foot most prominent on the plantar surface as noted. LABORATORY DATA: Her chemistries showed a BUN of 15, sodium 134, potassium 3.4, chloride 101, CO2 of 27. Glucose of 306, creatinine 0.7. Her glucose levels have ranged from 262 to 317 mg/dL. ASSESSMENT: This is a 68-year-old female with uncontrolled and decompensated type 2 insulin-requiring diabetes with marked hyperglycemic accelerations despite combination therapy, presenting here with right foot cellulitis with a nonhealing neuropathic ulceration in the third digit with mild odor and purulent discharge as noted. She also has significant diabetic microvascular complications of painful diabetic polyneuropathy with macrovascular complications of coronary artery disease and peripheral vasculopathy as noted. PLAN OF MANAGEMENT: We will modify her current insulin regimen and start a basal and bolus insulin drug combination, which is clearly more physiologic in terms of optimizing her metabolic control. We will add Lantus at 34 units subcutaneous at bedtime daily to start tonight. We will also add Novolog given as 14 units t.i.d. before meals to start tomorrow morning at breakfast time as ordered. We will modify the coverage scale to obviate hypoglycemia and detailed orders have been given for a low dose Novolog coverage as ordered. We will resume her Januvia given as 100 mg once daily as ordered. We will obtain a hemoglobin A1c to confirm her prior poor glycemic control and baseline thyroid studies and the lipid panel will be ordered. We will reinforce diabetic education and diabetic instructions at the time of this admission. We will follow and advise accordingly. Anna Marie Pearce MD
[2018-09-30] MEDS ORDERED: Pneumococcal 23-Valent Vaccine IM ONE (10:00)
[2018-09-30] MEDS ORDERED: Influenza Vaccine 60 mcg/0.5 mL SYR (4YR UP) IM ONE (10:00)
--- NOTE | 2018-09-30 12:10 | CP.PCM.PN ---
Subjective - Date & Time of Evaluation Date of Evaluation: 09/30/18 Time of Evaluation: 11:00 - Subjective Subjective: Progress Note for Podiatry- Dr. Neal 68 y/o female patient with PMHx of DM2, hyperlipidemia, HTN was seen and evaluated with infected right 3rd digit with osteomyelitis. Patient is seen resting comfortably in bed, in NAD, AAOx3. Patient reports that she has pain to her 3rd digit. Reports feeling intermittent pain. Denies nausea, shortness of breath, chest pains or chills. No other complaints. Objective - Vital Signs/Intake and Output Vital Signs (last 24 hours): Temp Pulse Resp BP Pulse Ox 99 F 93 H 20 146/83 96 09/30/18 07:00 09/30/18 07:00 09/30/18 07:00 09/30/18 07:00 09/30/18 07:00 Intake and Output: 09/30/18 09/30/18 06:59 18:59 Intake Total 1040 Balance 1040 - Medications Medications: Current Medications Acetaminophen (Tylenol 325mg Tab) 650 mg PO Q6 PRN PRN Reason: Headache Last Admin: 09/30/18 11:00 Dose: 650 mg Albuterol/Ipratropium (Duoneb 3 Mg/0.5 Mg (3 Ml) Ud) 3 ml INH RQ6 [facility] Last Admin: 09/30/18 08:25 Dose: 3 ml Docusate Sodium (Colace) 100 mg PO TID [facility] Last Admin: 09/30/18 10:58 Dose: 100 mg Gabapentin (Neurontin) 300 mg PO TID [facility] Last Admin: 09/30/18 10:59 Dose: 300 mg Gemfibrozil (Lopid) 600 mg PO BID [facility] Last Admin: 09/30/18 11:00 Dose: 600 mg Heparin Sodium (Porcine) (Heparin) 5,000 units SC Q8 [facility] Last Admin: 09/30/18 05:38 Dose: 5,000 units Daptomycin 400 mg/ Sodium (Chloride) 100 mls @ 100 mls/hr IV Q24H [facility]; Protocol Stop: 10/03/18 18:01 Last Admin: 09/29/18 18:30 Dose: 100 mls/hr Meropenem 500 mg/ Sodium (Chloride) 100 mls @ 100 mls/hr IVPB Q8H [facility]; Protocol Last Admin: 09/30/18 10:30 Dose: 100 mls/hr Dextrose/Sodium Chloride (Dextrose 5%/0.45% Ns 1000 Ml) 1,000 mls @ 100 mls/hr IV .Q10H [facility] Insulin Aspart (Novolog) 0 unit SC ACHS [facility] Last Admin: 09/30/18 12:01 Dose: Not Given Insulin Aspart (Novolog) 14 unit SC AC [facility] Last Admin: 09/30/18 08:30 Dose: 14 units Insulin Glargine (Lantus) 34 unit SC HS [facility] Last Admin: 09/29/18 21:28 Dose: 34 u Insulin Glargine (Lantus) 20 unit SC HS [facility] Stop: 09/30/18 22:01 Loratadine (Claritin) 10 mg PO DAILY [facility] Last Admin: 09/30/18 10:59 Dose: 10 mg Montelukast Sodium (Singulair) 10 mg PO DAILY [facility] Last Admin: 09/30/18 10:58 Dose: 10 mg Promethazine HCl (Phenergan Syrup) 6.25 mg PO Q6 PRN PRN Reason: Cough Last Admin: 09/29/18 17:07 Dose: 6.25 mg Rosuvastatin Calcium (Crestor) 5 mg PO HS [facility] Last Admin: 09/29/18 21:27 Dose: 5 mg Sitagliptin Phosphate (Januvia) 100 mg PO DAILY [facility] Last Admin: 09/30/18 10:58 Dose: 100 mg - Labs Labs: 09/27/18 21:49 09/30/18 06:30 - Constitutional Appears: Well, Non-toxic, No Acute Distress - Extremities Exam Extremities Exam: absent: Calf Tenderness Additional comments: Bilateral Lower Extremity Focused Exam VASC: DP and PT 2/4 bilaterally, Cap refill less than 3 seconds to all digits except right 3rd, Temp gradient is warm to warm to the dorsum of the right foot, Mild edema noted NEURO: diminished gross and protective sensations. DERM: wound noted to the tip of the right 3rd digit, positive purulent drainage, with moderate erythema, positive probe to bone, positive malodor with positive fluctuance, third digit swollen and erythematous with slight discoloration noted MSK: No pain on palpation the right hallux. Muscle power intact 5/5 to all groups - Neurological Exam Neurological Exam: Alert, Awake, Normal Gait - Psychiatric Exam Psychiatric exam: Normal Affect, Normal Mood Assessment and Plan - Assessment and Plan (Free Text) Assessment: 68 y/o female patient was seen and evaluated 3rd digit infected digit with wound and likely underlying osteomyelitis Plan: Patient seen and evaluated Plan discussed with Dr. Geo Neal Chart, labs and vitals were reviewed- WBC 8.6, febrile X-ray reviewed- 3rd digit OM, subacute to chronic nondisplaced fracture of 1st proximal phalange 3rd digit cleansed and betadine wet to dry applied ID consult placed, recommendations appreciated Wound culture right foot- staphylococcus Aureus Plan to go to the OR for amputation of entire 3rd digit on Thursday at 3:30PM pending medical clearance Per architect in training, "Likely cardiac risk for toe amputation or foot surgery moderate Recommend to proceed with the surgery if indicated" Heparin held for tomorrow, NPO Diet after midnight Patient may WBAT in surgical shoe
[2018-09-30 13:56] LABS: BASO % 0.5 % (0.0-2.0); EOS # 0.2 K/uL (0.0-0.7); EOS % 1.8 % (0.0-4.0); HEMOGLOBIN 9.5 g/dL (11.0-16.0); LYMPH # 1.1 K/uL (1.0-4.3); LYMPH % 12.8 % (20.0-40.0); MEAN CELL VOLUME 85.8 fL (81.0-99.0); MEAN CORPUSCULAR HEMOGLOBIN 28.8 pg (27.0-31.0); MEAN CORPUSCULAR HGB CONC 33.5 g/dL (33.0-37.0); MEAN PLATELET VOLUME 8.1 fL (7.2-11.7); MONO # 0.8 K/uL (0.0-0.8); MONO % 8.8 % (0.0-10.0); NEUT # 6.7 K/uL (1.8-7.0); NEUT % 76.1 % (50.0-75.0); RBC 3.3 Mil/uL (3.80-5.20); WHITE BLOOD COUNT 8.8 K/uL (4.8-10.8)
[2018-09-30] MEDS: Promethazine 6.25 MG/5 ML CUP PO PRN (17:53)
--- NOTE | 2018-09-30 20:11 | PN ---
DATE: 09/30/2018 LOCATION: ROOM 371. SUBJECTIVE: This is a 68-year-old female with recent uncontrolled type 2 insulin requiring diabetes, presenting here with a right third toe nonhealing neuropathic ulceration with associated cellulitis and is actually scheduled for amputation tomorrow afternoon as noted and is also being followed closely for metabolic management because of recent hyperglycemic accelerations as noted thereof. Her A1c has actually been reported as 11.7% indicative of suboptimal metabolic control of her diabetic condition as noted. LABORATORY DATA: Her glucose levels today have dramatically improved overnight with glucose values ranging from 108 to 238 mg/dL. It was 262 at bedtime last night and it was 317 at dinnertime yesterday. Her chemistry showed a BUN of 11, sodium 137, potassium 3.9, chloride 104, CO2 of 29, glucose 98, and creatinine 0.7. ASSESSMENT: This is a 68-year-old female with uncontrolled and decompensated type 2 insulin requiring diabetes, presenting here with nonhealing neuropathic ulceration of the right third digit in the right foot with underlying cellulitis and also with concomitant diabetic microvascular complications of polyneuropathy as noted. She also has diabetic macrovascular complications of coronary artery disease and peripheral vasculopathy as noted. PLAN OF MANAGEMENT: We will modify her basal and bolus insulin regimen and increase the NovoLog to 14 units t.i.d. before meals despite today as ordered. We will also modify her basal insulin and increase the Lantus to 34 units subcu at bedtime daily despite tonight. We will continue to modify lower dose regimen for NovoLog insulin as given to obviate hypoglycemia and detailed orders have been given. We will obtain serial chemistries and supplement accordingly as needed. We will follow. Anna Marie Pearce MD
[2018-09-30] MEDS ORDERED: (Lantus) Insulin Glargine, Recombinant SC ONE (22:00)
[2018-09-30] MEDS: Dextrose 5%/0.45% NS 1,000 ML IV SCH (23:22)
[2018-10-01] MEDS: Meropenem 500 MG in Sodium Chloride 0.9% 100 ML IVPB SCH ×3 (00:37→17:50)
[2018-10-01] MEDS: Albuterol-Ipratrop 3 mg / 0.5 (3 ml) UD INH SCH ×4 (01:26→22:00)
--- NOTE | 2018-10-01 06:34 | CP.PCM.PN ---
Subjective - Date & Time of Evaluation Date of Evaluation: 10/01/18 Time of Evaluation: 06:40 - Subjective Subjective: Pgy3 Internal Medicine resident Endocrinology Progress note for Dr. Pearce Patient seen and examined this morning. As per nursing no acute events overnight. Patient for OR this afternoon and has been NPO on maintenance fluids overnight. Patient complained of being very hungry and having a very dry mouth. She reported her headache had improved and rated pain of her right foot as 5/10 in intensity. She complained of constipation and having only had 1 small BM since admission. 12point ROS reviewed and otherwise unremarkable unless stated above. Objective - Vital Signs/Intake and Output Vital Signs (last 24 hours): Temp Pulse Resp BP Pulse Ox 98.1 F 90 20 130/80 97 09/30/18 23:47 09/30/18 23:47 09/30/18 23:47 09/30/18 23:47 09/30/18 23:47 Intake and Output: 09/30/18 10/01/18 18:59 06:59 Intake Total 1300 2000 Balance 1300 2000 - Medications Medications: Current Medications Acetaminophen (Tylenol 325mg Tab) 650 mg PO Q6 PRN PRN Reason: Headache Last Admin: 09/30/18 11:00 Dose: 650 mg Albuterol/Ipratropium (Duoneb 3 Mg/0.5 Mg (3 Ml) Ud) 3 ml INH RQ6 [facility] Last Admin: 10/01/18 01:26 Dose: Not Given Docusate Sodium (Colace) 100 mg PO TID [facility] Last Admin: 09/30/18 17:50 Dose: 100 mg Gabapentin (Neurontin) 300 mg PO TID [facility] Last Admin: 09/30/18 17:50 Dose: 300 mg Gemfibrozil (Lopid) 600 mg PO BID [facility] Last Admin: 09/30/18 18:01 Dose: 600 mg Heparin Sodium (Porcine) (Heparin) 5,000 units SC Q8 [facility] Last Admin: 09/30/18 21:50 Dose: 5,000 units Daptomycin 400 mg/ Sodium (Chloride) 100 mls @ 100 mls/hr IV Q24H [facility]; Protocol Stop: 10/03/18 18:01 Last Admin: 09/30/18 17:00 Dose: 100 mls/hr Meropenem 500 mg/ Sodium (Chloride) 100 mls @ 100 mls/hr IVPB Q8H [facility]; Protocol Last Admin: 10/01/18 00:37 Dose: 100 mls/hr Dextrose/Sodium Chloride (Dextrose 5%/0.45% Ns 1000 Ml) 1,000 mls @ 100 mls/hr IV .Q10H [facility] Last Admin: 09/30/18 23:22 Dose: 100 mls/hr Insulin Aspart (Novolog) 0 unit SC ACHS [facility] Last Admin: 09/30/18 21:52 Dose: Not Given Insulin Aspart (Novolog) 14 unit SC AC [facility] Last Admin: 09/30/18 16:30 Dose: Not Given Insulin Glargine (Lantus) 34 unit SC HS [facility] Last Admin: 09/29/18 21:28 Dose: 34 u Loratadine (Claritin) 10 mg PO DAILY [facility] Last Admin: 09/30/18 10:59 Dose: 10 mg Montelukast Sodium (Singulair) 10 mg PO DAILY [facility] Last Admin: 09/30/18 10:58 Dose: 10 mg Promethazine HCl (Phenergan Syrup) 6.25 mg PO Q6 PRN PRN Reason: Cough Last Admin: 09/30/18 17:53 Dose: 6.25 mg Rosuvastatin Calcium (Crestor) 5 mg PO HS [facility] Last Admin: 09/30/18 21:54 Dose: 5 mg Sitagliptin Phosphate (Januvia) 100 mg PO DAILY [facility] Last Admin: 09/30/18 10:58 Dose: 100 mg - Labs Labs: 09/30/18 13:52 09/30/18 06:30 - Additional Findings Additional findings: - Constitutional Appears: Non-toxic, No Acute Distress - Head Exam Head Exam: ATRAUMATIC, NORMAL INSPECTION, NORMOCEPHALIC - Eye Exam Eye Exam: EOMI, Normal appearance, PERRL. absent: Conjunctival injection, Scleral icterus - ENT Exam ENT Exam: Mucous Membranes Dry - Neck Exam Neck exam: Positive for: Full Rom, Normal Inspection - Respiratory Exam Respiratory Exam: Clear to Auscultation Bilateral, NORMAL BREATHING PATTERN. absent: Accessory Muscle Use, Rales, Rhonchi, Wheezes - Cardiovascular Exam Cardiovascular Exam: RRR, +S1, +S2 - GI/Abdominal Exam GI & Abdominal Exam: Normal Bowel Sounds, Soft. absent: Firm, Guarding, Rigid, Tenderness - Extremities Exam Additional comments: R foot dressings noted - Neurological Exam Neurological exam: Alert, CN II-XII Intact, Oriented x3 - Psychiatric Exam Psychiatric exam: Normal Affect, Normal Mood - Skin Skin Exam: Normal Color, Warm - Constitutional Appears: Non-toxic, No Acute Distress - Head Exam Head Exam: ATRAUMATIC, NORMAL INSPECTION, NORMOCEPHALIC - Eye Exam Eye Exam: EOMI, Normal appearance, PERRL. absent: Conjunctival injection, Scleral icterus - ENT Exam ENT Exam: Mucous Membranes Moist - Neck Exam Neck exam: Positive for: Full Rom, Normal Inspection - Respiratory Exam Respiratory Exam: Clear to Auscultation Bilateral, NORMAL BREATHING PATTERN. absent: Accessory Muscle Use, Rales, Rhonchi, Wheezes - Cardiovascular Exam Cardiovascular Exam: RRR, +S1, +S2 - GI/Abdominal Exam GI & Abdominal Exam: Normal Bowel Sounds, Soft. absent: Firm, Guarding, Rigid, Tenderness - Extremities Exam Additional comments: R foot dressings noted - Neurological Exam Neurological exam: Alert, CN II-XII Intact, Oriented x3 - Psychiatric Exam Psychiatric exam: Normal Affect, Normal Mood - Skin Skin Exam: Normal Color, Warm Assessment and Plan - Assessment and Plan (Free Text) Assessment: 68yo Syrian female PMHx CAD, DM2, HLD, HTN, toe nail avulsion, DM neuropathy, constipation, osteomyelitis, medication noncompliance with multiple hospitalizations sent in by podiatry Dr Reid for cellulitis of 3rd digit Right foot. Endocrinology consulted for DM management. Plan: Uncontrolled IDDM Patient's blood work, imaging, and vitals reviewed. HgbA1c 11.7. As patient is due for OR patient has been NPO past midnight and on D51/2NS @ 100cc/hr. Will d/c fluids after procedure and resume Lantus 34U qhs and Novolog 14u sc. We will continue RISS at this time for coverage. Patient will be resumed on all other home medications after procedure. Patient counseled thoroughly on the importance of medication compliance. Will continue to monitor patient closely. Discussed with Dr. Ramses Lindsay PGY3
[2018-10-01 06:54] LABS: BASO # 0.1 K/uL (0.0-0.2); BASO % 0.7 % (0.0-2.0); EOS # 0.4 K/uL (0.0-0.7); EOS % 4.5 % (0.0-4.0); HEMOGLOBIN 10.1 g/dL (11.0-16.0); LYMPH % 24.2 % (20.0-40.0); MEAN CELL VOLUME 85.8 fL (81.0-99.0); MEAN CORPUSCULAR HGB CONC 32.7 g/dL (33.0-37.0); MONO # 0.7 K/uL (0.0-0.8); MONO % 8.8 % (0.0-10.0); NEUT # 5.2 K/uL (1.8-7.0); NEUT % 61.8 % (50.0-75.0); RBC 3.59 Mil/uL (3.80-5.20); RED CELL DISTRIBUTION WIDTH 12.7 % (11.5-14.5); WHITE BLOOD COUNT 8.4 K/uL (4.8-10.8)
[2018-10-01 07:05] LABS: INR 1.1
[2018-10-01] MEDS: (Novolog) Insulin Aspart, Recombinant 100 u/ml 10 ml vial SC SCH ×4 (07:47→21:23)
[2018-10-01 08:01] LABS: ALBUMIN 3.2 g/dL (3.5-5.0); ALT/SGPT < 6 U/L (9-52); AST/SGOT 20 U/L (14-36); BLOOD UREA NITROGEN 11 mg/dL (7-17); GFR NON-AFRICAN AMERICAN > 60
[2018-10-01] MEDS: Dextrose 5%/0.45% NS 1,000 ML IV SCH ×2 (08:53→09:11)
--- NOTE | 2018-10-01 14:33 | CP.PCM.PN ---
Subjective - Date & Time of Evaluation Date of Evaluation: 10/01/18 Time of Evaluation: 11:00 - Subjective Subjective: Progress Note for Podiatry- Dr. Neal 68 y/o female patient with PMHx of DM2, hyperlipidemia, HTN was seen and evaluated with infected right 3rd digit with osteomyelitis. Patient understands she will be going to the OR today for an amputation of right 3rd digit secondary to osteomyelitis. Denies fever or chills last night. Reports some mild pain. Reports nothing to eat or drink since midnight. Denies nausea, shortness of breath, chest pains or chills. Objective - Vital Signs/Intake and Output Vital Signs (last 24 hours): Temp Pulse Resp BP Pulse Ox 98 F 90 20 135/79 98 10/01/18 07:36 10/01/18 07:36 10/01/18 07:36 10/01/18 07:36 10/01/18 07:36 Intake and Output: 10/01/18 10/01/18 06:59 18:59 Intake Total 1999 Balance 1999 - Medications Medications: Current Medications Acetaminophen (Tylenol 325mg Tab) 650 mg PO Q6 PRN PRN Reason: Headache Last Admin: 09/30/18 11:00 Dose: 650 mg Albuterol/Ipratropium (Duoneb 3 Mg/0.5 Mg (3 Ml) Ud) 3 ml INH RQ6 [facility] Last Admin: 10/01/18 08:50 Dose: 3 ml Docusate Sodium (Colace) 100 mg PO TID [facility] Last Admin: 10/01/18 13:23 Dose: Not Given Gabapentin (Neurontin) 300 mg PO TID [facility] Last Admin: 10/01/18 13:23 Dose: Not Given Gemfibrozil (Lopid) 600 mg PO BID [facility] Last Admin: 10/01/18 09:11 Dose: Not Given Heparin Sodium (Porcine) (Heparin) 5,000 units SC Q8 [facility] Last Admin: 09/30/18 21:50 Dose: 5,000 units Daptomycin 400 mg/ Sodium (Chloride) 100 mls @ 100 mls/hr IV Q24H [facility]; Protocol Stop: 10/03/18 18:01 Last Admin: 09/30/18 17:00 Dose: 100 mls/hr Meropenem 500 mg/ Sodium (Chloride) 100 mls @ 100 mls/hr IVPB Q8H [facility]; Protocol Last Admin: 10/01/18 08:52 Dose: 100 mls/hr Dextrose/Sodium Chloride (Dextrose 5%/0.45% Ns 1000 Ml) 1,000 mls @ 100 mls/hr IV .Q10H [facility] Stop: 10/01/18 18:00 Last Admin: 10/01/18 09:11 Dose: Not Given Insulin Aspart (Novolog) 0 unit SC ACHS [facility] Last Admin: 10/01/18 11:32 Dose: Not Given Insulin Aspart (Novolog) 14 unit SC AC [facility] Last Admin: 09/30/18 16:30 Dose: Not Given Insulin Glargine (Lantus) 34 unit SC HS [facility] Last Admin: 09/29/18 21:28 Dose: 34 u Loratadine (Claritin) 10 mg PO DAILY [facility] Last Admin: 10/01/18 09:10 Dose: Not Given Montelukast Sodium (Singulair) 10 mg PO DAILY [facility] Last Admin: 10/01/18 09:11 Dose: Not Given Promethazine HCl (Phenergan Syrup) 6.25 mg PO Q6 PRN PRN Reason: Cough Last Admin: 09/30/18 17:53 Dose: 6.25 mg Rosuvastatin Calcium (Crestor) 5 mg PO HS [facility] Last Admin: 09/30/18 21:54 Dose: 5 mg Sitagliptin Phosphate (Januvia) 100 mg PO DAILY [facility] Last Admin: 10/01/18 09:11 Dose: Not Given - Labs Labs: 10/01/18 06:41 10/01/18 06:41 PT 12.0 SECONDS (9.7-12.2) 10/01/18 06:41 INR 1.1 10/01/18 06:41 APTT 40 SECONDS (21-34) H 10/01/18 06:41 - Constitutional Appears: Well, Non-toxic, No Acute Distress - Extremities Exam Extremities Exam: absent: Calf Tenderness Additional comments: Dressing clean dry and intact Temperature gradient WNL - Neurological Exam Neurological Exam: Alert, Awake, Oriented x3 - Psychiatric Exam Psychiatric exam: Normal Affect, Normal Mood Assessment and Plan - Assessment and Plan (Free Text) Assessment: 68 y/o female patient was seen and evaluated 3rd digit infected digit with wound and underlying osteomyelitis Plan: Patient seen and evaluated Plan discussed with Dr. Geo Neal Chart, labs and vitals were reviewed X-ray reviewed- 3rd digit OM, subacute to chronic nondisplaced fracture of 1st proximal phalange Wound culture right foot- staphylococcus Aureus Abx per ID Patient will go to the OR for amputation of entire 3rd digit okay Per regulatory intern, "Likely cardiac risk for toe amputation or foot surgery moderate Recommend to proceed with the surgery if indicated" Heparin held NPO Diet confirmed Patient may WBAT in surgical shoe
[2018-10-01] MEDS ORDERED: Bupivacaine 0.25% 20 ML INJ IJ ONE (14:55)
[2018-10-01] MEDS ORDERED: Lidocaine 2% MPF (5 ml) Inj ONE (14:55)
[2018-10-01] MEDS ORDERED: Midazolam 2 MG/2 ML VIAL ONE (14:57)
[2018-10-01] MEDS ORDERED: Propofol 10 mg/ml Inj (20 ML) ONE (15:01)
[2018-10-01] MEDS ORDERED: HYDROmorphone 0.5 mg/0.5 ml ISec IVP PRN (15:02)
--- NOTE | 2018-10-01 15:41 | PCM.SURG1 ---
Surgeon's Initial Post Op Note - Surgeon's Notes Surgeon: Dr. Geo Neal, DPM Front End Application Developer: Dr. Joel Patel DPM PGY-2 Type of Anesthesia: IV Sedation, Local Anesthesia Administered By: Dr. Silva Pre-Operative Diagnosis: Left 5th digit osteomyelitis Operative Findings: see dictation. preooperative injectables: 10 cc of 2% lidocaine pain and 0.25% marcaine plain. materials: 3-0 vicryl, 4-0 prolene Post-Operative Diagnosis: same Operation Performed: 1. left 3rd digit amputation Specimen/Specimens Removed: 1. left 3rd digit Estimated Blood Loss: EBL {In ML}: 10 Blood Products Given: N/A Drains Used: No Drains Post-Op Condition: Good Date of Surgery/Procedure: 10/01/18 Time of Surgery/Procedure: 14:00
--- NOTE | 2018-10-01 16:23 | RAD ---
Date of service: 10/01/2018 PROCEDURE: Right Foot Radiographs. HISTORY: s/p right foot surgery COMPARISON: None. TECHNIQUE: 3 views obtained. FINDINGS: BONES: Oblique lucency through the 1st proximal phalanx as seen on prior examination. Consistent with fracture of indeterminate age. Questionable displaced fragment at the plantar base of the 1st proximal phalanx. These findings are unchanged from prior examination. JOINTS: Normal. SOFT TISSUES: Normal. OTHER FINDINGS: None. IMPRESSION: Oblique fracture 1st proximal phalanx of indeterminate age with questionably displaced fracture at proximal plantar aspect. No change from 09/27/2018.
[2018-10-01] MEDS ORDERED: Sodium Chloride 0.45% 1,000 ML IV SCH (18:00)
[2018-10-02] MEDS: Albuterol-Ipratrop 3 mg / 0.5 (3 ml) UD INH SCH ×4 (01:29→20:07)
[2018-10-02] MEDS: Meropenem 500 MG in Sodium Chloride 0.9% 100 ML IVPB SCH ×3 (01:36→17:39)
[2018-10-02] MEDS: Promethazine 6.25 MG/5 ML CUP PO PRN (02:55)
--- NOTE | 2018-10-02 04:02 | PN ---
DATE: 10/01/2018 ENDOCRINOLOGY FOLLOWUP NOTE LOCATION: Room 371. SUBJECTIVE: This is a 68-year-old female with recent uncontrolled type 2 insulin-requiring diabetes who underwent a right third toe amputation today as noted. She presented here with marked hyperglycemic accelerations and a right third toe nonhealing neuropathic ulceration with associated cellulitis as noted. Her glycemic levels are fluctuating but improved. The glucose values have ranged from 159 to 176 and 242 mg/dL. LABORATORY DATA: Her chemistry showed a BUN of 11, sodium 135, potassium 4.1, chloride 103, CO2 of 27, glucose 211 and creatinine 0.8. ASSESSMENT: This is a 68-year-old female with uncontrolled and decompensated type 2 insulin-requiring diabetes with marked hyperglycemic accelerations and suboptimal metabolic control, presenting here with right third toe nonhealing neuropathic ulceration and associated cellulitis as noted. She also has diabetic microvascular complications of retinopathy and polyneuropathy with diabetic macrovascular complications of coronary artery disease and peripheral vasculopathy as noted. PLAN OF MANAGEMENT: We will continue to modify basal and bolus insulin regimen and actually resume the aforementioned as they were held off today because of the surgical procedure as mentioned. We will resume her Lantus given as 34 units subcu at bedtime daily to start tonight as ordered. We will also add NovoLog given as 14 units t.i.d. before meals as ordered. We will obtain serial chemistries and supplement accordingly as needed. We will also continue the low-dose correction scale using Humalog insulin as ordered. We will follow and advise accordingly. Anna Marie Pearce MD
--- NOTE | 2018-10-02 06:18 | CP.PCM.PN ---
Subjective - Date & Time of Evaluation Date of Evaluation: 09/29/18 Time of Evaluation: 06:18 - Subjective Subjective: Patient is more comfortable now. Complaining of pain is slightly. Not in any distress. 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 On examination: Vital signs are stable. Blood sugar elevated Chest good air entry Regular heart sounds noted Nontender abdomen Assessment and recommendation: 68-year-old female admitted with uncontrolled diabetes Foot ulcers. Nonhealing. Diabetes, diabetic vasculopathy. Awaiting for cardiology to see, and the possible surgical plan on Thursday. Objective - Vital Signs/Intake and Output Vital Signs (last 24 hours): Temp Pulse Resp BP Pulse Ox 98.2 F 76 18 127/71 98 10/02/18 00:00 10/02/18 00:00 10/02/18 00:00 10/02/18 00:00 10/02/18 00:00 Intake and Output: 10/01/18 10/02/18 18:59 06:59 Intake Total 450 590 Balance 450 590 - Medications Medications: Current Medications Acetaminophen (Tylenol 325mg Tab) 650 mg PO Q6 PRN PRN Reason: Headache Last Admin: 09/30/18 11:00 Dose: 650 mg Albuterol/Ipratropium (Duoneb 3 Mg/0.5 Mg (3 Ml) Ud) 3 ml INH RQ6 [facility] Last Admin: 10/02/18 01:29 Dose: Not Given Docusate Sodium (Colace) 100 mg PO TID [facility] Last Admin: 10/01/18 18:46 Dose: Not Given Gabapentin (Neurontin) 300 mg PO TID [facility] Last Admin: 10/01/18 19:16 Dose: 300 mg Gemfibrozil (Lopid) 600 mg PO BID [facility] Last Admin: 10/01/18 19:16 Dose: 600 mg Heparin Sodium (Porcine) (Heparin) 5,000 units SC Q8 [facility] Last Admin: 09/30/18 21:50 Dose: 5,000 units Daptomycin 400 mg/ Sodium (Chloride) 100 mls @ 100 mls/hr IV Q24H [facility]; Protocol Stop: 10/03/18 18:01 Last Admin: 10/01/18 19:16 Dose: 100 mls/hr Meropenem 500 mg/ Sodium (Chloride) 100 mls @ 100 mls/hr IVPB Q8H [facility]; Protocol Last Admin: 10/02/18 01:36 Dose: 100 mls/hr Sodium Chloride (Sodium Chloride 0.45%) 1,000 mls @ 40 mls/hr IV .Q24H [facility] Last Admin: 10/01/18 17:52 Dose: 40 mls/hr Insulin Aspart (Novolog) 0 unit SC ACHS [facility] Last Admin: 10/01/18 21:23 Dose: Not Given Insulin Aspart (Novolog) 14 unit SC AC [facility] Last Admin: 09/30/18 16:30 Dose: Not Given Insulin Glargine (Lantus) 30 unit SC HS [facility] Loratadine (Claritin) 10 mg PO DAILY [facility] Last Admin: 10/01/18 09:10 Dose: Not Given Montelukast Sodium (Singulair) 10 mg PO DAILY [facility] Last Admin: 10/01/18 09:11 Dose: Not Given Promethazine HCl (Phenergan Syrup) 6.25 mg PO Q6 PRN PRN Reason: Cough Last Admin: 10/02/18 02:55 Dose: 6.25 mg Rosuvastatin Calcium (Crestor) 5 mg PO HS [facility] Last Admin: 10/01/18 21:33 Dose: 5 mg Sitagliptin Phosphate (Januvia) 100 mg PO DAILY [facility] Last Admin: 10/01/18 09:11 Dose: Not Given - Labs Labs: 10/01/18 06:41 10/01/18 06:41 PT 12.0 SECONDS (9.7-12.2) 10/01/18 06:41 INR 1.1 10/01/18 06:41 APTT 40 SECONDS (21-34) H 10/01/18 06:41
--- NOTE | 2018-10-02 06:19 | CP.PCM.PN ---
Subjective - Date & Time of Evaluation Date of Evaluation: 09/30/18 Time of Evaluation: 06:18 - Subjective Subjective: Feeling okay. Chills and feverish noted. Also having some warm sensation over the left leg. On examination: Vital signs are stable. Elevated blood sugar noted Chest good air entry Heart sounds are regular Nontender abdomen Assessment and recommendation: Patient is a 68-year-old female admitted with a chronic nonhealing leg ulcer, di abetic foot ulcer associated with possible deep infection, and recommended surgical intervention. Patient is agreeing. Possible plan on Thursday Objective - Vital Signs/Intake and Output Vital Signs (last 24 hours): Temp Pulse Resp BP Pulse Ox 98.2 F 76 18 127/71 98 10/02/18 00:00 10/02/18 00:00 10/02/18 00:00 10/02/18 00:00 10/02/18 00:00 Intake and Output: 10/01/18 10/02/18 18:59 06:59 Intake Total 450 590 Balance 450 590 - Medications Medications: Current Medications Acetaminophen (Tylenol 325mg Tab) 650 mg PO Q6 PRN PRN Reason: Headache Last Admin: 09/30/18 11:00 Dose: 650 mg Albuterol/Ipratropium (Duoneb 3 Mg/0.5 Mg (3 Ml) Ud) 3 ml INH RQ6 [facility] Last Admin: 10/02/18 01:29 Dose: Not Given Docusate Sodium (Colace) 100 mg PO TID [facility] Last Admin: 10/01/18 18:46 Dose: Not Given Gabapentin (Neurontin) 300 mg PO TID [facility] Last Admin: 10/01/18 19:16 Dose: 300 mg Gemfibrozil (Lopid) 600 mg PO BID [facility] Last Admin: 10/01/18 19:16 Dose: 600 mg Heparin Sodium (Porcine) (Heparin) 5,000 units SC Q8 [facility] Last Admin: 09/30/18 21:50 Dose: 5,000 units Daptomycin 400 mg/ Sodium (Chloride) 100 mls @ 100 mls/hr IV Q24H [facility]; Protocol Stop: 10/03/18 18:01 Last Admin: 10/01/18 19:16 Dose: 100 mls/hr Meropenem 500 mg/ Sodium (Chloride) 100 mls @ 100 mls/hr IVPB Q8H [facility]; Protocol Last Admin: 10/02/18 01:36 Dose: 100 mls/hr Sodium Chloride (Sodium Chloride 0.45%) 1,000 mls @ 40 mls/hr IV .Q24H [facility] Last Admin: 10/01/18 17:52 Dose: 40 mls/hr Insulin Aspart (Novolog) 0 unit SC ACHS [facility] Last Admin: 10/01/18 21:23 Dose: Not Given Insulin Aspart (Novolog) 14 unit SC AC [facility] Last Admin: 09/30/18 16:30 Dose: Not Given Insulin Glargine (Lantus) 30 unit SC HS [facility] Loratadine (Claritin) 10 mg PO DAILY [facility] Last Admin: 10/01/18 09:10 Dose: Not Given Montelukast Sodium (Singulair) 10 mg PO DAILY [facility] Last Admin: 10/01/18 09:11 Dose: Not Given Promethazine HCl (Phenergan Syrup) 6.25 mg PO Q6 PRN PRN Reason: Cough Last Admin: 10/02/18 02:55 Dose: 6.25 mg Rosuvastatin Calcium (Crestor) 5 mg PO HS [facility] Last Admin: 10/01/18 21:33 Dose: 5 mg Sitagliptin Phosphate (Januvia) 100 mg PO DAILY [facility] Last Admin: 10/01/18 09:11 Dose: Not Given - Labs Labs: 10/01/18 06:41 10/01/18 06:41 PT 12.0 SECONDS (9.7-12.2) 10/01/18 06:41 INR 1.1 10/01/18 06:41 APTT 40 SECONDS (21-34) H 10/01/18 06:41
--- NOTE | 2018-10-02 06:19 | CP.PCM.PN ---
Subjective - Date & Time of Evaluation Date of Evaluation: 10/01/18 Time of Evaluation: 06:19 - Subjective Subjective: Feeling okay. Chills and feverish noted. Also having some warm sensation over the left leg. On examination: Vital signs are stable. Elevated blood sugar noted Chest good air entry Heart sounds are regular Nontender abdomen Assessment and recommendation: Patient is a 68-year-old female admitted with a chronic nonhealing leg ulcer, d iabetic foot ulcer associated with possible deep infection, and recommended surgical intervention. Patient is scheduled to have the surgical intervention today. Objective - Vital Signs/Intake and Output Vital Signs (last 24 hours): Temp Pulse Resp BP Pulse Ox 98.2 F 76 18 127/71 98 10/02/18 00:00 10/02/18 00:00 10/02/18 00:00 10/02/18 00:00 10/02/18 00:00 Intake and Output: 10/01/18 10/02/18 18:59 06:59 Intake Total 450 590 Balance 450 590 - Medications Medications: Current Medications Acetaminophen (Tylenol 325mg Tab) 650 mg PO Q6 PRN PRN Reason: Headache Last Admin: 09/30/18 11:00 Dose: 650 mg Albuterol/Ipratropium (Duoneb 3 Mg/0.5 Mg (3 Ml) Ud) 3 ml INH RQ6 [facility] Last Admin: 10/02/18 01:29 Dose: Not Given Docusate Sodium (Colace) 100 mg PO TID [facility] Last Admin: 10/01/18 18:46 Dose: Not Given Gabapentin (Neurontin) 300 mg PO TID [facility] Last Admin: 10/01/18 19:16 Dose: 300 mg Gemfibrozil (Lopid) 600 mg PO BID [facility] Last Admin: 10/01/18 19:16 Dose: 600 mg Heparin Sodium (Porcine) (Heparin) 5,000 units SC Q8 [facility] Last Admin: 09/30/18 21:50 Dose: 5,000 units Daptomycin 400 mg/ Sodium (Chloride) 100 mls @ 100 mls/hr IV Q24H [facility]; Protocol Stop: 10/03/18 18:01 Last Admin: 10/01/18 19:16 Dose: 100 mls/hr Meropenem 500 mg/ Sodium (Chloride) 100 mls @ 100 mls/hr IVPB Q8H [facility]; Protocol Last Admin: 10/02/18 01:36 Dose: 100 mls/hr Sodium Chloride (Sodium Chloride 0.45%) 1,000 mls @ 40 mls/hr IV .Q24H [facility] Last Admin: 10/01/18 17:52 Dose: 40 mls/hr Insulin Aspart (Novolog) 0 unit SC ACHS [facility] Last Admin: 10/01/18 21:23 Dose: Not Given Insulin Aspart (Novolog) 14 unit SC AC [facility] Last Admin: 09/30/18 16:30 Dose: Not Given Insulin Glargine (Lantus) 30 unit SC HS [facility] Loratadine (Claritin) 10 mg PO DAILY [facility] Last Admin: 10/01/18 09:10 Dose: Not Given Montelukast Sodium (Singulair) 10 mg PO DAILY [facility] Last Admin: 10/01/18 09:11 Dose: Not Given Promethazine HCl (Phenergan Syrup) 6.25 mg PO Q6 PRN PRN Reason: Cough Last Admin: 10/02/18 02:55 Dose: 6.25 mg Rosuvastatin Calcium (Crestor) 5 mg PO HS [facility] Last Admin: 10/01/18 21:33 Dose: 5 mg Sitagliptin Phosphate (Januvia) 100 mg PO DAILY [facility] Last Admin: 10/01/18 09:11 Dose: Not Given - Labs Labs: 10/01/18 06:41 10/01/18 06:41 PT 12.0 SECONDS (9.7-12.2) 10/01/18 06:41 INR 1.1 10/01/18 06:41 APTT 40 SECONDS (21-34) H 10/01/18 06:41
--- NOTE | 2018-10-02 06:19 | CP.PCM.PN ---
Subjective - Date & Time of Evaluation Date of Evaluation: 10/02/18 Time of Evaluation: 06:19 - Subjective Subjective: Patient had surgery intervention yesterday. Postoperative day 1. Patient is comfortable not in any distress complaining of some pain. No fever today. On examination: Vital signs stable. Chest good air entry Heart sounds are regular Nontender abdomen. Pedal edema negative Assessment and recommendation: 68-year-old female admitted with diabetes and diabetic foot ulcer, staph aureus infection. On antibiotic. We will continue the current treatment. Status post ray amputation. And will follow the patient glucose control Objective - Vital Signs/Intake and Output Vital Signs (last 24 hours): Temp Pulse Resp BP Pulse Ox 98.2 F 76 18 127/71 98 10/02/18 00:00 10/02/18 00:00 10/02/18 00:00 10/02/18 00:00 10/02/18 00:00 Intake and Output: 10/01/18 10/02/18 18:59 06:59 Intake Total 450 590 Balance 450 590 - Medications Medications: Current Medications Acetaminophen (Tylenol 325mg Tab) 650 mg PO Q6 PRN PRN Reason: Headache Last Admin: 09/30/18 11:00 Dose: 650 mg Albuterol/Ipratropium (Duoneb 3 Mg/0.5 Mg (3 Ml) Ud) 3 ml INH RQ6 [facility] Last Admin: 10/02/18 01:29 Dose: Not Given Docusate Sodium (Colace) 100 mg PO TID [facility] Last Admin: 10/01/18 18:46 Dose: Not Given Gabapentin (Neurontin) 300 mg PO TID [facility] Last Admin: 10/01/18 19:16 Dose: 300 mg Gemfibrozil (Lopid) 600 mg PO BID [facility] Last Admin: 10/01/18 19:16 Dose: 600 mg Heparin Sodium (Porcine) (Heparin) 5,000 units SC Q8 [facility] Last Admin: 09/30/18 21:50 Dose: 5,000 units Daptomycin 400 mg/ Sodium (Chloride) 100 mls @ 100 mls/hr IV Q24H [facility]; Protocol Stop: 10/03/18 18:01 Last Admin: 10/01/18 19:16 Dose: 100 mls/hr Meropenem 500 mg/ Sodium (Chloride) 100 mls @ 100 mls/hr IVPB Q8H [facility]; Protocol Last Admin: 10/02/18 01:36 Dose: 100 mls/hr Sodium Chloride (Sodium Chloride 0.45%) 1,000 mls @ 40 mls/hr IV .Q24H [facility] Last Admin: 10/01/18 17:52 Dose: 40 mls/hr Insulin Aspart (Novolog) 0 unit SC ACHS [facility] Last Admin: 10/01/18 21:23 Dose: Not Given Insulin Aspart (Novolog) 14 unit SC AC [facility] Last Admin: 09/30/18 16:30 Dose: Not Given Insulin Glargine (Lantus) 30 unit SC HS [facility] Loratadine (Claritin) 10 mg PO DAILY [facility] Last Admin: 10/01/18 09:10 Dose: Not Given Montelukast Sodium (Singulair) 10 mg PO DAILY [facility] Last Admin: 10/01/18 09:11 Dose: Not Given Promethazine HCl (Phenergan Syrup) 6.25 mg PO Q6 PRN PRN Reason: Cough Last Admin: 10/02/18 02:55 Dose: 6.25 mg Rosuvastatin Calcium (Crestor) 5 mg PO HS [facility] Last Admin: 10/01/18 21:33 Dose: 5 mg Sitagliptin Phosphate (Januvia) 100 mg PO DAILY [facility] Last Admin: 10/01/18 09:11 Dose: Not Given - Labs Labs: 10/01/18 06:41 10/01/18 06:41 PT 12.0 SECONDS (9.7-12.2) 10/01/18 06:41 INR 1.1 10/01/18 06:41 APTT 40 SECONDS (21-34) H 10/01/18 06:41
[2018-10-02] MEDS: (Novolog) Insulin Aspart, Recombinant 100 u/ml 10 ml vial SC SCH ×7 (07:36→21:49)
[2018-10-02 08:03] VITALS: RESP 20
--- NOTE | 2018-10-02 08:35 | CP.PCM.PN ---
Subjective - Date & Time of Evaluation Date of Evaluation: 09/30/18 Time of Evaluation: 09:15 - Subjective Subjective: Patient seen and evaluated Denies chest pain and dyspnea Physical Exam - Constitutional Appears: Well, No Acute Distress - Head Exam Head Exam: ATRAUMATIC, NORMOCEPHALIC - Eye Exam Eye Exam: Normal appearance - ENT Exam ENT Exam: Mucous Membranes Moist - Extremities Exam Additional comments: Bilateral Lower Extremity Focused Exam VASC: DP and PT 2/4 bilaterally, Cap refill less than 3 seconds to all digits except right 3rd, Temp gradient is warm to warm to the dorsum of the right foot, Mild edema noted NEURO: diminished gross and protective sensations. DERM: wound noted to the tip of the right 3rd digit, positive purulent drainage, with moderate erythema, positive probe to bone, positive malodor with positive fluctuance, third digit swollen and erythematous with slight discoloration noted MSK: No pain on palpation the right hallux. Muscle power intact 5/5 to all groups - Neurological Exam Neurological exam: Alert, Oriented x3 - Psychiatric Exam Psychiatric exam: Normal Affect, Normal Mood - Skin Skin Exam: Normal Color Assessment & Plan - Assessment and Plan (Free Text) Assessment: 68 F with hx of DM2, HTN with no active cardiac symptoms Recent stress test at [place] 07/21/18: Normal ECHO 07/21/18: EF 45% Stable hemodynamics Likely cardiac risk for toe amputation or foot surgery moderate Recommend to proceed with the surgery if indicated Patient to OR tomorrow Objective - Vital Signs/Intake and Output Vital Signs (last 24 hours): Temp Pulse Resp BP Pulse Ox 98.9 F 90 20 130/75 96 10/02/18 08:02 10/02/18 08:02 10/02/18 08:02 10/02/18 08:02 10/02/18 08:02 Intake and Output: 10/02/18 10/02/18 06:59 18:59 Intake Total 1210 Balance 1210 - Medications Medications: Current Medications Acetaminophen (Tylenol 325mg Tab) 650 mg PO Q6 PRN PRN Reason: Headache Last Admin: 09/30/18 11:00 Dose: 650 mg Albuterol/Ipratropium (Duoneb 3 Mg/0.5 Mg (3 Ml) Ud) 3 ml INH RQ6 [facility] Last Admin: 10/02/18 01:29 Dose: Not Given Docusate Sodium (Colace) 100 mg PO TID [facility] Last Admin: 10/01/18 18:46 Dose: Not Given Gabapentin (Neurontin) 300 mg PO TID [facility] Last Admin: 10/01/18 19:16 Dose: 300 mg Gemfibrozil (Lopid) 600 mg PO BID [facility] Last Admin: 10/01/18 19:16 Dose: 600 mg Heparin Sodium (Porcine) (Heparin) 5,000 units SC Q8 [facility] Last Admin: 10/02/18 06:56 Dose: 5,000 units Daptomycin 400 mg/ Sodium (Chloride) 100 mls @ 100 mls/hr IV Q24H [facility]; Protocol Stop: 10/03/18 18:01 Last Admin: 10/01/18 19:16 Dose: 100 mls/hr Meropenem 500 mg/ Sodium (Chloride) 100 mls @ 100 mls/hr IVPB Q8H [facility]; Protocol Last Admin: 10/02/18 01:36 Dose: 100 mls/hr Insulin Aspart (Novolog) 0 unit SC ACHS [facility] Last Admin: 10/02/18 07:36 Dose: Not Given Insulin Aspart (Novolog) 14 unit SC AC [facility] Last Admin: 10/02/18 08:04 Dose: 14 units Insulin Glargine (Lantus) 30 unit SC HS [facility] Loratadine (Claritin) 10 mg PO DAILY [facility] Last Admin: 10/01/18 09:10 Dose: Not Given Montelukast Sodium (Singulair) 10 mg PO DAILY [facility] Last Admin: 10/01/18 09:11 Dose: Not Given Promethazine HCl (Phenergan Syrup) 6.25 mg PO Q6 PRN PRN Reason: Cough Last Admin: 10/02/18 02:55 Dose: 6.25 mg Rosuvastatin Calcium (Crestor) 5 mg PO HS [facility] Last Admin: 10/01/18 21:33 Dose: 5 mg Sitagliptin Phosphate (Januvia) 100 mg PO DAILY [facility] Last Admin: 10/01/18 09:11 Dose: Not Given - Labs Labs: 10/01/18 06:41 10/01/18 06:41 PT 12.0 SECONDS (9.7-12.2) 10/01/18 06:41 INR 1.1 10/01/18 06:41 APTT 40 SECONDS (21-34) H 03/29/19 06:41
--- NOTE | 2018-10-02 08:37 | CP.PCM.PN ---
Subjective - Date & Time of Evaluation Date of Evaluation: 10/01/18 Time of Evaluation: 10:50 - Subjective Subjective: Patient seen and evaluated Denies chest pain and dyspnea Patient for surgery today Physical Exam - Constitutional Appears: Well, No Acute Distress - Head Exam Head Exam: ATRAUMATIC, NORMOCEPHALIC - Eye Exam Eye Exam: Normal appearance - ENT Exam ENT Exam: Mucous Membranes Moist - Extremities Exam Additional comments: Bilateral Lower Extremity Focused Exam VASC: DP and PT 2/4 bilaterally, Cap refill less than 3 seconds to all digits except right 3rd, Temp gradient is warm to warm to the dorsum of the right foot, Mild edema noted NEURO: diminished gross and protective sensations. DERM: wound noted to the tip of the right 3rd digit, positive purulent drainage, with moderate erythema, positive probe to bone, positive malodor with positive fluctuance, third digit swollen and erythematous with slight discoloration noted MSK: No pain on palpation the right hallux. Muscle power intact 5/5 to all groups - Neurological Exam Neurological exam: Alert, Oriented x3 - Psychiatric Exam Psychiatric exam: Normal Affect, Normal Mood - Skin Skin Exam: Normal Color Assessment & Plan - Assessment and Plan (Free Text) Assessment: 68 F with hx of DM2, HTN with no active cardiac symptoms Recent stress test at [place] 07/21/18: Normal ECHO 07/21/18: EF 45% Stable hemodynamics Likely cardiac risk for toe amputation or foot surgery moderate Recommend to proceed with the surgery if indicated Patient to OR today Objective - Vital Signs/Intake and Output Vital Signs (last 24 hours): Temp Pulse Resp BP Pulse Ox 98.9 F 90 20 130/75 96 10/02/18 08:02 10/02/18 08:02 10/02/18 08:02 10/02/18 08:02 10/02/18 08:02 Intake and Output: 10/02/18 10/02/18 06:59 18:59 Intake Total 1210 Balance 1210 - Medications Medications: Current Medications Acetaminophen (Tylenol 325mg Tab) 650 mg PO Q6 PRN PRN Reason: Headache Last Admin: 09/30/18 11:00 Dose: 650 mg Albuterol/Ipratropium (Duoneb 3 Mg/0.5 Mg (3 Ml) Ud) 3 ml INH RQ6 [facility] Last Admin: 03/30/19 01:29 Dose: Not Given Docusate Sodium (Colace) 100 mg PO TID [facility] Last Admin: 10/01/18 18:46 Dose: Not Given Gabapentin (Neurontin) 300 mg PO TID [facility] Last Admin: 10/01/18 19:16 Dose: 300 mg Gemfibrozil (Lopid) 600 mg PO BID [facility] Last Admin: 10/01/18 19:16 Dose: 600 mg Heparin Sodium (Porcine) (Heparin) 5,000 units SC Q8 [facility] Last Admin: 10/02/18 06:56 Dose: 5,000 units Daptomycin 400 mg/ Sodium (Chloride) 100 mls @ 100 mls/hr IV Q24H [facility]; Protocol Stop: 10/03/18 18:01 Last Admin: 10/01/18 19:16 Dose: 100 mls/hr Meropenem 500 mg/ Sodium (Chloride) 100 mls @ 100 mls/hr IVPB Q8H [facility]; Protocol Last Admin: 10/02/18 01:36 Dose: 100 mls/hr Insulin Aspart (Novolog) 0 unit SC ACHS [facility] Last Admin: 10/02/18 07:36 Dose: Not Given Insulin Aspart (Novolog) 14 unit SC AC [facility] Last Admin: 10/02/18 08:04 Dose: 14 units Insulin Glargine (Lantus) 30 unit SC HS [facility] Loratadine (Claritin) 10 mg PO DAILY [facility] Last Admin: 10/01/18 09:10 Dose: Not Given Montelukast Sodium (Singulair) 10 mg PO DAILY [facility] Last Admin: 10/01/18 09:11 Dose: Not Given Promethazine HCl (Phenergan Syrup) 6.25 mg PO Q6 PRN PRN Reason: Cough Last Admin: 10/02/18 02:55 Dose: 6.25 mg Rosuvastatin Calcium (Crestor) 5 mg PO HS [facility] Last Admin: 10/01/18 21:33 Dose: 5 mg Sitagliptin Phosphate (Januvia) 100 mg PO DAILY [facility] Last Admin: 10/01/18 09:11 Dose: Not Given - Labs Labs: 10/01/18 06:41 10/01/18 06:41 PT 12.0 SECONDS (9.7-12.2) 10/01/18 06:41 INR 1.1 10/01/18 06:41 APTT 40 SECONDS (21-34) H 10/01/18 06:41
--- NOTE | 2018-10-02 11:29 | CP.PCM.PN ---
Subjective - Date & Time of Evaluation Date of Evaluation: 10/02/18 Time of Evaluation: 11:29 - Subjective Subjective: Progress Note for Podiatry- Dr. Neal 68 y/o female patient with PMHx of DM2, hyperlipidemia, HTN was seen and evaluated POD#1 right third digit amputation. Patient understands she will be going to the OR today for an amputation of right 3rd digit secondary to osteomyelitis. Denies fever or chills last night. Reports some mild pain. Denies nausea, shortness of breath, chest pains or chills. Objective - Vital Signs/Intake and Output Vital Signs (last 24 hours): Temp Pulse Resp BP Pulse Ox 98.9 F 90 20 130/75 96 10/02/18 08:02 10/02/18 08:02 10/02/18 08:02 10/02/18 08:02 10/02/18 08:02 Intake and Output: 10/02/18 10/02/18 06:59 18:59 Intake Total 1210 Balance 1210 - Medications Medications: Current Medications Acetaminophen (Tylenol 325mg Tab) 650 mg PO Q6 PRN PRN Reason: Headache Last Admin: 10/02/18 09:37 Dose: 650 mg Albuterol/Ipratropium (Duoneb 3 Mg/0.5 Mg (3 Ml) Ud) 3 ml INH RQ6 [facility] Last Admin: 10/02/18 08:33 Dose: 3 ml Docusate Sodium (Colace) 100 mg PO TID [facility] Last Admin: 10/02/18 09:37 Dose: 100 mg Gabapentin (Neurontin) 300 mg PO TID [facility] Last Admin: 10/02/18 09:37 Dose: 300 mg Gemfibrozil (Lopid) 600 mg PO BID [facility] Last Admin: 10/02/18 09:36 Dose: 600 mg Heparin Sodium (Porcine) (Heparin) 5,000 units SC Q8 [facility] Last Admin: 10/02/18 06:56 Dose: 5,000 units Daptomycin 400 mg/ Sodium (Chloride) 100 mls @ 100 mls/hr IV Q24H [facility]; Protocol Stop: 10/03/18 18:01 Last Admin: 10/01/18 19:16 Dose: 100 mls/hr Meropenem 500 mg/ Sodium (Chloride) 100 mls @ 100 mls/hr IVPB Q8H [facility]; Protocol Last Admin: 10/02/18 09:38 Dose: 100 mls/hr Insulin Aspart (Novolog) 0 unit SC ACHS [facility] Last Admin: 10/02/18 11:08 Dose: Not Given Insulin Aspart (Novolog) 14 unit SC AC [facility] Last Admin: 10/02/18 08:04 Dose: 14 units Insulin Glargine (Lantus) 30 unit SC HS [facility] Loratadine (Claritin) 10 mg PO DAILY [facility] Last Admin: 10/02/18 09:37 Dose: 10 mg Montelukast Sodium (Singulair) 10 mg PO DAILY [facility] Last Admin: 10/02/18 09:36 Dose: 10 mg Promethazine HCl (Phenergan Syrup) 6.25 mg PO Q6 PRN PRN Reason: Cough Last Admin: 10/02/18 02:55 Dose: 6.25 mg Rosuvastatin Calcium (Crestor) 5 mg PO HS [facility] Last Admin: 10/01/18 21:33 Dose: 5 mg Sitagliptin Phosphate (Januvia) 100 mg PO DAILY [facility] Last Admin: 10/02/18 09:38 Dose: 100 mg - Labs Labs: 10/01/18 06:41 10/01/18 06:41 PT 12.0 SECONDS (9.7-12.2) 10/01/18 06:41 INR 1.1 10/01/18 06:41 APTT 40 SECONDS (21-34) H 10/01/18 06:41 - Constitutional Appears: Well, Non-toxic, No Acute Distress - Head Exam Head Exam: ATRAUMATIC, NORMOCEPHALIC - Eye Exam Eye Exam: Normal appearance - ENT Exam ENT Exam: Mucous Membranes Moist - Cardiovascular Exam Cardiovascular Exam: REGULAR RHYTHM, +S1, +S2 - Neurological Exam Neurological Exam: Alert, Awake, Oriented x3 - Psychiatric Exam Psychiatric exam: Normal Affect Assessment and Plan - Assessment and Plan (Free Text) Assessment: 68 y/o female patient was seen and evaluated POD#1 right third digit amputation Plan: Patient seen and evaluated Plan discussed with Dr. Geo Neal Chart, labs and vitals were reviewed X-ray reviewed- 3rd digit OM, subacute to chronic nondisplaced fracture of 1st proximal phalange Wound culture right foot- staphylococcus Aureus Abx per ID Will restart Heparin Thursday morning NWB in surgical shoe with assisting device for 2-3 days Physical therapy on hold for now, patient to rest due to bleeding in the surgical site until Thursday. Will resume Thursday Specimen right 3rd digit sent to pathology -pending Wound culture taken intraoperative- pending Xray ordered and reviewed- postop operative 3rd digit amputation right foot
--- NOTE | 2018-10-02 13:34 | PN ---
DATE: 10/02/2018 ENDOCRINOLOGY FOLLOWUP NOTE LOCATION: Room 371. SUBJECTIVE: This is a 68-year-old female with recent uncontrolled type 2 insulin-requiring diabetes, now being followed closely for metabolic management. Her glycemic levels are fluctuating, but improved and the glucose levels overnight have ranged from 124 to 189 and 246 mg/dL. Her chemistries showed a BUN of 11, sodium 135, potassium 4.1, chloride 103, CO2 of 27, glucose 211, and creatinine 0.8. ASSESSMENT: This is a 68-year-old female with uncontrolled and decompensated type 2 insulin requiring diabetes with marked hyperglycemic accelerations and clearly suboptimal metabolic control of a diabetic condition related to poor drug adherence or compliance with a subtherapeutic insulin regimen as given. She also has diabetic microvascular complications of retinopathy and polyneuropathy with macrovascular complications of coronary artery disease and peripheral vasculopathy. She had a nonhealing third toe necrotic ulceration for which she underwent a toe amputation yesterday and is now being followed closely postoperatively as noted. PLAN OF MANAGEMENT: We will continue the modified basal and bolus insulin regimen to allow for dose equilibration and keep her on the Lantus ordered as 30 units subcu daily at bedtime daily as given. We will continue her NovoLog given as 14 units t.i.d. before meals as ordered. We will obtain serial chemistries and supplement accordingly as needed. We will also continue the low-dose correction scale using NovoLog insulin as given. We will obtain serial chemistries and supplement accordingly as needed. We will follow with you. Anna Marie Pearce MD
[2018-10-02] MEDS ORDERED: (Lantus) Insulin Glargine, Recombinant SC SCH (22:00)
[2018-10-03] MEDS: Meropenem 500 MG in Sodium Chloride 0.9% 100 ML IVPB SCH ×3 (00:37→16:48)
[2018-10-03] MEDS: Albuterol-Ipratrop 3 mg / 0.5 (3 ml) UD INH SCH ×3 (02:26→14:23)
[2018-10-03] MEDS: (Novolog) Insulin Aspart, Recombinant 100 u/ml 10 ml vial SC SCH ×7 (07:48→22:07)
--- NOTE | 2018-10-03 09:40 | CP.PCM.PN ---
Subjective - Date & Time of Evaluation Date of Evaluation: 10/02/18 Time of Evaluation: 18:25 - Subjective Subjective: Patient seen and evaluated Denies chest pain and dyspnea Patient s/p surgery No cardiac events noted Physical Exam - Constitutional Appears: Well, No Acute Distress - Head Exam Head Exam: ATRAUMATIC, NORMOCEPHALIC - Eye Exam Eye Exam: Normal appearance - ENT Exam ENT Exam: Mucous Membranes Moist - Extremities Exam Additional comments: Bilateral Lower Extremity Focused Exam VASC: DP and PT 2/4 bilaterally, Cap refill less than 3 seconds to all digits except right 3rd, Temp gradient is warm to warm to the dorsum of the right foot, Mild edema noted NEURO: diminished gross and protective sensations. DERM: wound noted to the tip of the right 3rd digit, positive purulent drainage, with moderate erythema, positive probe to bone, positive malodor with positive fluctuance, third digit swollen and erythematous with slight discoloration noted MSK: No pain on palpation the right hallux. Muscle power intact 5/5 to all groups - Neurological Exam Neurological exam: Alert, Oriented x3 - Psychiatric Exam Psychiatric exam: Normal Affect, Normal Mood - Skin Skin Exam: Normal Color Assessment & Plan - Assessment and Plan (Free Text) Assessment: 68 F with hx of DM2, HTN with no active cardiac symptoms Recent stress test at [place] 07/21/18: Normal ECHO 07/21/18: EF 45% Stable hemodynamics S/P surgery Stable Objective - Vital Signs/Intake and Output Vital Signs (last 24 hours): Temp Pulse Resp BP Pulse Ox 98 F 84 20 134/77 97 10/03/18 08:03 10/03/18 08:03 10/03/18 08:03 10/03/18 08:03 10/03/18 08:03 Intake and Output: 10/03/18 10/03/18 06:59 18:59 Intake Total 740 Balance 740 - Medications Medications: Current Medications Acetaminophen (Tylenol 325mg Tab) 650 mg PO Q6 PRN PRN Reason: Headache Last Admin: 10/02/18 09:37 Dose: 650 mg Albuterol/Ipratropium (Duoneb 3 Mg/0.5 Mg (3 Ml) Ud) 3 ml INH RQ6 [facility] Last Admin: 10/03/18 09:07 Dose: Not Given Docusate Sodium (Colace) 100 mg PO TID [facility] Last Admin: 10/02/18 18:00 Dose: 100 mg Gabapentin (Neurontin) 300 mg PO TID [facility] Last Admin: 10/02/18 18:00 Dose: 300 mg Gemfibrozil (Lopid) 600 mg PO BID [facility] Last Admin: 10/02/18 18:00 Dose: 600 mg Heparin Sodium (Porcine) (Heparin) 5,000 units SC Q8 [facility] Last Admin: 10/03/18 06:02 Dose: 5,000 units Daptomycin 400 mg/ Sodium (Chloride) 100 mls @ 100 mls/hr IV Q24H [facility]; Protocol Stop: 10/03/18 18:01 Last Admin: 10/02/18 19:20 Dose: 100 mls/hr Meropenem 500 mg/ Sodium (Chloride) 100 mls @ 100 mls/hr IVPB Q8H [facility]; Protocol Last Admin: 10/03/18 00:37 Dose: 100 mls/hr Insulin Aspart (Novolog) 0 unit SC ACHS [facility] Last Admin: 10/03/18 07:49 Dose: Not Given Insulin Aspart (Novolog) 14 unit SC AC [facility] Last Admin: 10/03/18 07:48 Dose: 14 units Insulin Glargine (Lantus) 30 unit SC HS [facility] Last Admin: 10/02/18 21:50 Dose: Not Given Loratadine (Claritin) 10 mg PO DAILY [facility] Last Admin: 10/02/18 09:37 Dose: 10 mg Montelukast Sodium (Singulair) 10 mg PO DAILY [facility] Last Admin: 10/02/18 09:36 Dose: 10 mg Promethazine HCl (Phenergan Syrup) 6.25 mg PO Q6 PRN PRN Reason: Cough Last Admin: 10/02/18 02:55 Dose: 6.25 mg Rosuvastatin Calcium (Crestor) 5 mg PO HS [facility] Last Admin: 10/02/18 22:10 Dose: Not Given Sitagliptin Phosphate (Januvia) 100 mg PO DAILY [facility] Last Admin: 10/02/18 09:38 Dose: 100 mg - Labs Labs: 10/01/18 06:41 10/01/18 06:41 PT 12.0 SECONDS (9.7-12.2) 10/01/18 06:41 INR 1.1 10/01/18 06:41 APTT 40 SECONDS (21-34) H 10/01/18 06:41
--- NOTE | 2018-10-03 11:46 | CP.PCM.PN ---
Subjective - Date & Time of Evaluation Date of Evaluation: 10/03/18 Time of Evaluation: 11:44 - Subjective Subjective: Progress Note for Podiatry- Dr. Neal 68 y/o female patient with PMHx of DM2, hyperlipidemia, HTN was seen and evaluated POD#2 right third digit amputation. Denies fever or chills last night. Reports some mild pain. Denies nausea, shortness of breath, chest pains or chills Objective - Vital Signs/Intake and Output Vital Signs (last 24 hours): Temp Pulse Resp BP Pulse Ox 98 F 84 20 134/77 97 10/03/18 08:03 10/03/18 08:03 10/03/18 08:03 10/03/18 08:03 10/03/18 08:03 Intake and Output: 10/03/18 10/03/18 06:59 18:59 Intake Total 740 Balance 740 - Medications Medications: Current Medications Acetaminophen (Tylenol 325mg Tab) 650 mg PO Q6 PRN PRN Reason: Headache Last Admin: 10/02/18 09:37 Dose: 650 mg Albuterol/Ipratropium (Duoneb 3 Mg/0.5 Mg (3 Ml) Ud) 3 ml INH RQ6 [facility] Last Admin: 10/03/18 09:07 Dose: Not Given Docusate Sodium (Colace) 100 mg PO TID [facility] Last Admin: 10/03/18 09:51 Dose: 100 mg Gabapentin (Neurontin) 300 mg PO TID [facility] Last Admin: 10/03/18 09:51 Dose: 300 mg Gemfibrozil (Lopid) 600 mg PO BID [facility] Last Admin: 10/03/18 09:51 Dose: 600 mg Heparin Sodium (Porcine) (Heparin) 5,000 units SC Q8 [facility] Last Admin: 10/03/18 06:02 Dose: 5,000 units Daptomycin 400 mg/ Sodium (Chloride) 100 mls @ 100 mls/hr IV Q24H [facility]; Protocol Stop: 10/03/18 18:01 Last Admin: 10/02/18 19:20 Dose: 100 mls/hr Meropenem 500 mg/ Sodium (Chloride) 100 mls @ 100 mls/hr IVPB Q8H [facility]; Protocol Last Admin: 10/03/18 09:51 Dose: 100 mls/hr Insulin Aspart (Novolog) 0 unit SC ACHS [facility] Last Admin: 10/03/18 07:49 Dose: Not Given Insulin Aspart (Novolog) 14 unit SC AC [facility] Last Admin: 10/03/18 07:48 Dose: 14 units Insulin Glargine (Lantus) 30 unit SC HS [facility] Last Admin: 10/02/18 21:50 Dose: Not Given Loratadine (Claritin) 10 mg PO DAILY [facility] Last Admin: 10/03/18 09:51 Dose: 10 mg Montelukast Sodium (Singulair) 10 mg PO DAILY [facility] Last Admin: 10/03/18 09:51 Dose: 10 mg Promethazine HCl (Phenergan Syrup) 6.25 mg PO Q6 PRN PRN Reason: Cough Last Admin: 10/02/18 02:55 Dose: 6.25 mg Rosuvastatin Calcium (Crestor) 5 mg PO HS [facility] Last Admin: 10/02/18 22:10 Dose: Not Given Sitagliptin Phosphate (Januvia) 100 mg PO DAILY [facility] Last Admin: 10/03/18 09:51 Dose: 100 mg - Labs Labs: 10/01/18 06:41 10/01/18 06:41 PT 12.0 SECONDS (9.7-12.2) 10/01/18 06:41 INR 1.1 10/01/18 06:41 APTT 40 SECONDS (21-34) H 10/01/18 06:41 - Constitutional Appears: Well, Non-toxic, No Acute Distress - Head Exam Head Exam: ATRAUMATIC, NORMOCEPHALIC - Eye Exam Eye Exam: Normal appearance - ENT Exam ENT Exam: Mucous Membranes Moist - Respiratory Exam Respiratory Exam: NORMAL BREATHING PATTERN - Cardiovascular Exam Cardiovascular Exam: REGULAR RHYTHM, +S1, +S2 - Extremities Exam Additional comments: Right Lower Extremity Focused Exam VASC: DP and PT 2/4, Cap refill less than 3 seconds x4 Temp gradient is warm to warm to the dorsum of the right foot NEURO: diminished gross and protective sensations. DERM: sutures intact to the third interspace, no wound dehiscence, no signs of active infection, no drainage at this time MSK: No pain on palpation the right hallux. Muscle power intact 5/5 to all groups - Neurological Exam Neurological Exam: Alert, Awake, Oriented x3 - Psychiatric Exam Psychiatric exam: Normal Affect Assessment and Plan - Assessment and Plan (Free Text) Assessment: 68 y/o female patient was seen and evaluated POD#2 right third digit amputation Plan: Patient seen and evaluated Plan discussed with Dr. Geo Neal Chart, labs and vitals were reviewed X-ray reviewed- 3rd digit OM, subacute to chronic nondisplaced fracture of 1st proximal phalange Wound culture right foot- staphylococcus Aureus Abx per iD Heparin started NWB in surgical shoe with assisting device for 2-3 days Physical therapy on hold for now, patient to rest due to bleeding in the surgical site until Thursday. Will resume Thursday Specimen right 3rd digit sent to pathology -pending Wound culture taken intraoperative- pending Xray ordered and reviewed- postop operative 3rd digit amputation right foot
[2018-10-03] MEDS: Promethazine 6.25 MG/5 ML CUP PO PRN ×2 (12:40→22:19)
--- NOTE | 2018-10-03 20:00 | PN ---
DATE: 10/03/2018 ENDOCRINOLOGY FOLLOWUP NOTE LOCATION: Room 369. SUBJECTIVE: This is a 68-year-old female with recent uncontrolled type 2 insulin-requiring diabetes with extremes of glycemic fluctuations related to the variability of her oral intake as noted thereof. Her glucose levels overnight have ranged from 86 to 154 and 237 mg/dL. Her bedtime glucose was 77 mg/dL and I presumed they also held off on her bedtime basal insulin as noted. Her latest chemistries showed a BUN of 11, sodium 135, potassium 4.1, chloride 103, CO2 of 27, glucose 211, and creatinine 0.8. ASSESSMENT: This is a 68-year-old female with uncontrolled and decompensated type 2 insulin requiring diabetes with marked hyperglycemic accelerations and clearly a suboptimal metabolic control with an A1c of 11.7 indicative of poor diabetic control, even prior to this admission. She has diabetic microvascular complications of retinopathy and polyneuropathy with diabetic macrovascular complications of coronary artery disease and peripheral vasculopathy, presenting here with a right third toe nonhealing necrotic ulceration and underlying cellulitis and actually underwent a third toe amputation with this admission as noted. PLAN OF MANAGEMENT: We will modify once again her basal and bolus insulin regimen to optimize metabolic control. With the variability of her oral intake, we will lower her basal insulin to 24 units subcu at bedtime daily to start tonight. We will also lower the NovoLog to 10 units t.i.d. before meals as ordered. We will also continue the Januvia given as 100 mg once daily as ordered. We will obtain serial chemistries and supplement accordingly as needed. We will follow. Anna Marie Pearce MD
[2018-10-03] MEDS ORDERED: (Lantus) Insulin Glargine, Recombinant SC SCH (22:00)
--- NOTE | 2018-10-03 22:54 | CP.PCM.PN ---
Subjective - Date & Time of Evaluation Date of Evaluation: 10/03/18 Time of Evaluation: 13:05 - Subjective Subjective: Patient with no cardiac events Denies chest pain and dyspnea Physical Exam - Constitutional Appears: Well, No Acute Distress - Head Exam Head Exam: ATRAUMATIC, NORMOCEPHALIC - Eye Exam Eye Exam: Normal appearance - ENT Exam ENT Exam: Mucous Membranes Moist - Extremities Exam Additional comments: Bilateral Lower Extremity Focused Exam VASC: DP and PT 2/4 bilaterally, Cap refill less than 3 seconds to all digits except right 3rd, Temp gradient is warm to warm to the dorsum of the right foot, Mild edema noted NEURO: diminished gross and protective sensations. DERM: wound noted to the tip of the right 3rd digit, positive purulent drainage, with moderate erythema, positive probe to bone, positive malodor with positive fluctuance, third digit swollen and erythematous with slight discoloration noted MSK: No pain on palpation the right hallux. Muscle power intact 5/5 to all groups - Neurological Exam Neurological exam: Alert, Oriented x3 - Psychiatric Exam Psychiatric exam: Normal Affect, Normal Mood - Skin Skin Exam: Normal Color Assessment & Plan - Assessment and Plan (Free Text) Assessment: 68 F with hx of DM2, HTN with no active cardiac symptoms Recent stress test at [facility] 07/21/18: Normal ECHO 07/21/18: EF 45% Stable hemodynamics S/P surgery Stable Objective - Vital Signs/Intake and Output Vital Signs (last 24 hours): Temp Pulse Resp BP Pulse Ox 98.0 F 109 H 20 107/65 93 L 10/03/18 16:51 10/03/18 16:51 10/03/18 16:51 10/03/18 16:51 10/03/18 16:51 Intake and Output: 10/03/18 10/04/18 18:59 06:59 Intake Total 440 Balance 440 - Medications Medications: Current Medications Acetaminophen (Tylenol 325mg Tab) 650 mg PO Q6 PRN PRN Reason: Headache Last Admin: 10/03/18 22:16 Dose: 650 mg Docusate Sodium (Colace) 100 mg PO TID [facility] Last Admin: 10/03/18 17:36 Dose: 100 mg Gabapentin (Neurontin) 300 mg PO TID [facility] Last Admin: 10/03/18 17:36 Dose: 300 mg Gemfibrozil (Lopid) 600 mg PO BID [facility] Last Admin: 10/03/18 18:10 Dose: 600 mg Heparin Sodium (Porcine) (Heparin) 5,000 units SC Q8 [facility] Last Admin: 10/03/18 22:05 Dose: 5,000 units Meropenem 500 mg/ Sodium (Chloride) 100 mls @ 100 mls/hr IVPB Q8H [facility]; Protocol Last Admin: 10/03/18 16:48 Dose: 100 mls/hr Insulin Aspart (Novolog) 0 unit SC ACHS [facility] Last Admin: 10/03/18 22:07 Dose: 4 unit Insulin Aspart (Novolog) 10 unit SC AC [facility] Last Admin: 10/03/18 16:43 Dose: 10 units Insulin Glargine (Lantus) 24 unit SC HS [facility] Last Admin: 10/03/18 22:05 Dose: 24 units Loratadine (Claritin) 10 mg PO DAILY [facility] Last Admin: 10/03/18 09:51 Dose: 10 mg Montelukast Sodium (Singulair) 10 mg PO DAILY [facility] Last Admin: 10/03/18 09:51 Dose: 10 mg Promethazine HCl (Phenergan Syrup) 6.25 mg PO Q6 PRN PRN Reason: Cough Last Admin: 10/03/18 22:19 Dose: 6.25 mg Rosuvastatin Calcium (Crestor) 5 mg PO HS [facility] Last Admin: 10/03/18 22:04 Dose: 5 mg Sitagliptin Phosphate (Januvia) 100 mg PO DAILY [facility] Last Admin: 10/03/18 09:51 Dose: 100 mg - Labs Labs: 10/01/18 06:41 10/01/18 06:41 PT 12.0 SECONDS (9.7-12.2) 10/01/18 06:41 INR 1.1 10/01/18 06:41 APTT 40 SECONDS (21-34) H 10/01/18 06:41
--- NOTE | 2018-10-04 00:10 | PCM.OP ---
Operative Report - Operative Report Date of Surgery/Procedure: 10/01/18 Time of Surgery/Procedure: 14:30 Surgeon: Dr. Geo Neal DPM Head Packager: Dr. Joel Patel DPM PGY-2 Anesthesia/Sedation: Dr. Gustvao Jim Pre-Operative Diagnosis: right 3rd digit ulceration with osteomyelitis Post-Operative Diagnosis: same Indication for Surgery: Indications: The patient is a 68 year-old female with the above diagnoses. Patient presents with full thickness ulceration on right 3rd toe 2 cm x 1.2 cm x .3cm with wound base with mixture of pale pink and necrotic tissue with slough and osteomyelitis to the right 3rd digit. There was moderate erythema with purulence noted. The patient has exhausted all conservative treatment at this time and now requires surgical intervention. The patient signed the consent after careful explanation of risks, benefits, complications and alternatives for surgical procedure. No guarantees were given nor implied. NPO status was confirmed prior to taking patient to the OR. Operative Findings: see below Procedure/Operation Description: Preparation: The patient was brought in to the operating room and placed on the operating room table in a supine position. Timeout was performed for identification of the correct patient and procedure. The patient received a total of 10cc of a 1:1 mixture of 2% lidocaine plain and 0.25% Marcaine plain in a V-block fashion to the right 3rd digit. The right foot was then prepped and draped in normal sterile manner and the procedure began. No tourniquet was used during the procedure. Procedure: Attention was then drawn to the dorsal aspect of the right 3rd digit. The digit was examined and about 2 cc of purulence drainage was exsanguinated from the ulceration at the distal type. Next using a #15 blade a fish mouth type incision was made extending from the dorsal aspect of the 3rd metatarsal head distally and incision was made around the 3rd digit. Next the incision was extended down through the subcutaneous layers down to the level of bone. Care was being taken to identify and retract all vital neurovascular structures. All bleeders were ligated and cauterized. Using a bone clamp to stabilize the toe, the 3rd digit was then disarticulated from the foot at the level of the right 3 rd metatarsal phalangeal level. The 3rd digit was passed off the operative field and sent to pathology for evaluation. During this time wound culture was taken. Next the wound was copiously irrigate with sterile saline. Using a fresh #15 blade, the skin margins were debulked to create a suitable flap for closure. Next, the wound was copiously flushed with sterile saline. Next ulitizing 3-0 vicryl, the subcutaneous tissue was reapproximated. Next, skin layers were then re-approximated and coapted using #3-0 nylon using a horixontal mattress and simple suture technique. The right foot was then dressed with beadine soaked adaptic, 4x4 gauze, kerlix and ERIKA Estimated Blood Loss: 10 cc Complications: none Specimen: right 3rd digit Discharge & Condition: Postoperative Condition: The patient tolerated the local anesthesia and procedure well and was escorted to the recovery room with neurovascular status intact to the right foot. Patient will remain in house and podiatry will continue to follow. Upon discharge, patient is to follow up with Dr. Neal within 1 week.
[2018-10-04] MEDS: Meropenem 500 MG in Sodium Chloride 0.9% 100 ML IVPB SCH ×3 (00:47→17:33)
[2018-10-04 07:19] LABS: BASO # 0.1 K/uL (0.0-0.2); BASO % 1.1 % (0.0-2.0); EOS # 0.4 K/uL (0.0-0.7); EOS % 3.9 % (0.0-4.0); LYMPH # 2.6 K/uL (1.0-4.3); LYMPH % 29.3 % (20.0-40.0); MEAN CELL VOLUME 86.2 fL (81.0-99.0); MEAN CORPUSCULAR HEMOGLOBIN 28.1 pg (27.0-31.0); MEAN CORPUSCULAR HGB CONC 32.6 g/dL (33.0-37.0); MEAN PLATELET VOLUME 8.3 fL (7.2-11.7); MONO # 0.7 K/uL (0.0-0.8); MONO % 7.8 % (0.0-10.0); NEUT # 5.2 K/uL (1.8-7.0); NEUT % 57.9 % (50.0-75.0); NRBC % 0.1 % (0.0-2.0); RBC 3.57 Mil/uL (3.80-5.20); RED CELL DISTRIBUTION WIDTH 13.1 % (11.5-14.5)
[2018-10-04 07:41] LABS: ALBUMIN 3.3 g/dL (3.5-5.0); ALT/SGPT < 6 U/L (9-52); AST/SGOT 20 U/L (14-36); BLOOD UREA NITROGEN 14 mg/dL (7-17); GFR NON-AFRICAN AMERICAN 55
[2018-10-04] MEDS: (Novolog) Insulin Aspart, Recombinant 100 u/ml 10 ml vial SC SCH ×5 (07:55→17:30)
--- NOTE | 2018-10-04 08:03 | CP.PCM.PN ---
Subjective - Date & Time of Evaluation Date of Evaluation: 10/04/18 Time of Evaluation: 07:30 - Subjective Subjective: Pgy3 Endocrinology Progress note for Dr. Pearce Patient seen and examined at bedside this morning. Patient states that yesterday afternoon she became diaphoretic and weak, she had episode of hypoglycemia with sugar of 77. She states that seh felt better after eating lunch. She denies having another episode since. she is tolerating diet. She reports constipation but states that she was able to have BM yesterday. She also reports pressure like pain in her right foot after the surgery as well as continued neuropathy of bilateral legs. 12 point ROS unremarkable except as stated above. Objective - Vital Signs/Intake and Output Vital Signs (last 24 hours): Temp Pulse Resp BP Pulse Ox 97.8 F 87 20 116/70 97 10/03/18 23:50 10/03/18 23:50 10/03/18 23:50 10/03/18 23:50 10/03/18 23:50 Intake and Output: 10/04/18 10/04/18 06:59 18:59 Intake Total 1260 Balance 1260 - Medications Medications: Current Medications Acetaminophen (Tylenol 325mg Tab) 650 mg PO Q6 PRN PRN Reason: Headache Last Admin: 10/03/18 22:16 Dose: 650 mg Docusate Sodium (Colace) 100 mg PO TID [facility] Last Admin: 10/03/18 17:36 Dose: 100 mg Gabapentin (Neurontin) 300 mg PO TID [facility] Last Admin: 10/03/18 17:36 Dose: 300 mg Gemfibrozil (Lopid) 600 mg PO BID [facility] Last Admin: 10/03/18 18:10 Dose: 600 mg Heparin Sodium (Porcine) (Heparin) 5,000 units SC Q8 [facility] Last Admin: 10/04/18 05:37 Dose: 5,000 units Meropenem 500 mg/ Sodium (Chloride) 100 mls @ 100 mls/hr IVPB Q8H [facility]; Protocol Last Admin: 10/04/18 00:47 Dose: 100 mls/hr Insulin Aspart (Novolog) 0 unit SC ACHS [facility] Last Admin: 10/04/18 07:55 Dose: Not Given Insulin Aspart (Novolog) 10 unit SC AC [facility] Last Admin: 10/03/18 16:43 Dose: 10 units Insulin Glargine (Lantus) 24 unit SC HS [facility] Last Admin: 10/03/18 22:05 Dose: 24 units Loratadine (Claritin) 10 mg PO DAILY [facility] Last Admin: 10/03/18 09:51 Dose: 10 mg Montelukast Sodium (Singulair) 10 mg PO DAILY [facility] Last Admin: 10/03/18 09:51 Dose: 10 mg Promethazine HCl (Phenergan Syrup) 6.25 mg PO Q6 PRN PRN Reason: Cough Last Admin: 10/03/18 22:19 Dose: 6.25 mg Rosuvastatin Calcium (Crestor) 5 mg PO HS [facility] Last Admin: 10/03/18 22:04 Dose: 5 mg Sitagliptin Phosphate (Januvia) 100 mg PO DAILY [facility] Last Admin: 10/03/18 09:51 Dose: 100 mg - Labs Labs: 10/04/18 07:00 10/04/18 07:00 PT 12.0 SECONDS (9.7-12.2) 10/01/18 06:41 INR 1.1 10/01/18 06:41 APTT 40 SECONDS (21-34) H 10/01/18 06:41 - Additional Findings Additional findings: - Constitutional Appears: Non-toxic, No Acute Distress - Head Exam Head Exam: ATRAUMATIC, NORMAL INSPECTION, NORMOCEPHALIC - Eye Exam Eye Exam: EOMI, Normal appearance, PERRL. absent: Conjunctival injection, Scleral icterus - ENT Exam ENT Exam: Mucous Membranes Dry - Neck Exam Neck exam: Positive for: Full Rom, Normal Inspection - Respiratory Exam Respiratory Exam: Clear to Auscultation Bilateral, NORMAL BREATHING PATTERN. absent: Accessory Muscle Use, Rales, Rhonchi, Wheezes - Cardiovascular Exam Cardiovascular Exam: RRR, +S1, +S2 - GI/Abdominal Exam GI & Abdominal Exam: Normal Bowel Sounds, Soft. absent: Firm, Guarding, Rigid, Tenderness - Extremities Exam Additional comments: R foot dressings noted, clean dry and intact - Neurological Exam Neurological exam: Alert, CN II-XII Intact, Oriented x3 - Psychiatric Exam Psychiatric exam: Normal Affect, Normal Mood - Skin Skin Exam: Normal Color, Warm Assessment and Plan - Assessment and Plan (Free Text) Assessment: 68 yo [place] female with PMH of CAD, DM2, HLD, HTN, toe nail avulsion, DM neuropathy, constipation, osteomyelitis, medication noncompliance with multiple hospitalizations sent in by podiatry for cellulitis of 3rd digit Right foot s/p amputation. Endocrinology consulted for DM management. Plan: Patient's blood work, imaging, and vitals reviewed. Patient hase uncontrolled IDDM with HgbA1c 11.7. Patient hypoglycemic episode yesterday with sugar of 77, over the past 24 hours sugars have ranged from 86- 371. This morning it was 270. Patient's Lantus was reduced to 24 units hs and Novolog was reduced to 10u sc. We will continue RISS at this time for coverage. Patient counseled thoroughly on the importance of medication compliance. Will continue to monitor patient closely. Case reviewed and discussed with Dr. Pearce
[2018-10-04 16:07] VITALS: BP 143/80; PULSE 92; TEMP 97.9; O2SAT 94
[2018-10-04] MEDS ORDERED: (Novolog) Insulin Aspart, Recombinant 100 u/ml 10 ml vial SC SCH (16:30)
--- NOTE | 2018-10-04 18:11 | CP.PCM.PN ---
Subjective - Date & Time of Evaluation Date of Evaluation: 10/04/18 Time of Evaluation: 18:03 - Subjective Subjective: INFECTIOUS DISEASE PROGRESS NOTES JAVIER MILLER MD, FACP 10/04/2018 CHART REVIEWED PT EXAMINED CASE DISCUSSED PT LAST SEEN ON FRIDAY, SEPTEMBER 28, 2018; AN [facility]ITAL INFECTIOUS DISEASE CONSULTATION WAS DONE. SEE EMPIRIC EVALUATIONS AND ORDERS MADE AND CASE DISUCSSED WITH PMD AND ALSO MESSI NEAL. APPARENTLY INTRAOPERATORY C/S RESULTS ONLY DEMONSTRATE STAPH AUREUS, AND PT ALSO UNDER WENT A COMPLETE TOTAL AMPUTATION OF THE OFFENDING TOE. CONSIDER 30 DAYS OF VIBRAMYCIN 100MG PO BID WITH FOOD-JUST NOT WITH MILK OR MILK PRODUCTS AT THE TIME OF SWALLOWING HER MEDS. SHE SHOULD FOLLOW UP WITH ME Q EVERY 10 DAYS, IN MY OFFICE. 68 y/o female patient with PMHx of DM2, hyperlipidemia, HTN was seen and evaluated right third digit amputation. Denies fever or chills last night. Reports some mild pain. Denies nausea, shortness of breath, chest pains or chills Objective - Vital Signs/Intake and Output Vital Signs (last 24 hours): Temp Pulse Resp BP Pulse Ox 98 F 84 20 134/77 97 10/03/18 08:03 10/03/18 08:03 10/03/18 08:03 10/03/18 08:03 10/03/18 08:03 Intake and Output: 10/03/18 10/03/18 06:59 18:59 Intake Total 740 Balance 740 - Medications Medications: Current Medications Acetaminophen (Tylenol 325mg Tab) 650 mg PO Q6 PRN PRN Reason: Headache Last Admin: 10/02/18 09:37 Dose: 650 mg Albuterol/Ipratropium (Duoneb 3 Mg/0.5 Mg (3 Ml) Ud) 3 ml INH RQ6 [facility] Last Admin: 10/03/18 09:07 Dose: Not Given Docusate Sodium (Colace) 100 mg PO TID [facility] Last Admin: 10/03/18 09:51 Dose: 100 mg Gabapentin (Neurontin) 300 mg PO TID [facility] Last Admin: 10/03/18 09:51 Dose: 300 mg Gemfibrozil (Lopid) 600 mg PO BID [facility] Last Admin: 10/03/18 09:51 Dose: 600 mg Heparin Sodium (Porcine) (Heparin) 5,000 units SC Q8 [facility] Last Admin: 10/03/18 06:02 Dose: 5,000 units Daptomycin 400 mg/ Sodium (Chloride) 100 mls @ 100 mls/hr IV Q24H [facility]; Protocol Stop: 10/03/18 18:01 Last Admin: 10/02/18 19:20 Dose: 100 mls/hr Meropenem 500 mg/ Sodium (Chloride) 100 mls @ 100 mls/hr IVPB Q8H [facility]; Protocol Last Admin: 10/03/18 09:51 Dose: 100 mls/hr Insulin Aspart (Novolog) 0 unit SC ACHS [facility] Last Admin: 10/03/18 07:49 Dose: Not Given Insulin Aspart (Novolog) 14 unit SC AC [facility] Last Admin: 10/03/18 07:48 Dose: 14 units Insulin Glargine (Lantus) 30 unit SC HS [facility] Last Admin: 10/02/18 21:50 Dose: Not Given Loratadine (Claritin) 10 mg PO DAILY [facility] Last Admin: 10/03/18 09:51 Dose: 10 mg Montelukast Sodium (Singulair) 10 mg PO DAILY [facility] Last Admin: 10/03/18 09:51 Dose: 10 mg Promethazine HCl (Phenergan Syrup) 6.25 mg PO Q6 PRN PRN Reason: Cough Last Admin: 10/02/18 02:55 Dose: 6.25 mg Rosuvastatin Calcium (Crestor) 5 mg PO HS [facility] Last Admin: 10/02/18 22:10 Dose: Not Given Sitagliptin Phosphate (Januvia) 100 mg PO DAILY [facility] Last Admin: 10/03/18 09:51 Dose: 100 mg - Labs Labs: 10/01/18 06:41 10/01/18 06:41 PT 12.0 SECONDS (9.7-12.2) 10/01/18 06:41 INR 1.1 10/01/18 06:41 APTT 40 SECONDS (21-34) H 10/01/18 06:41 - Constitutional Appears: Well, Non-toxic, No Acute Distress - Head Exam Head Exam: ATRAUMATIC, NORMOCEPHALIC - Eye Exam Eye Exam: Normal appearance - ENT Exam ENT Exam: Mucous Membranes Moist - Respiratory Exam Respiratory Exam: NORMAL BREATHING PATTERN - Cardiovascular Exam Cardiovascular Exam: REGULAR RHYTHM, +S1, +S2 - Extremities Exam Additional comments: Right Lower Extremity Focused Exam VASC: DP and PT 2/4, Cap refill less than 3 seconds x4 Temp gradient is warm to warm to the dorsum of the right foot NEURO: diminished gross and protective sensations. DERM: sutures intact to the third interspace, no wound dehiscence, no signs of active infection, no drainage at this time MSK: No pain on palpation the right hallux. Muscle power intact 5/5 to all groups - Neurological Exam Neurological Exam: Alert, Awake, Oriented x3 - Psychiatric Exam Psychiatric exam: Normal Affect Assessment and Plan - Assessment and Plan (Free Text) Assessment: 68 y/o female patient was seen and evaluated POD#2 right third digit amputation Plan: Patient seen and evaluated Plan discussed with Dr. Geo Neal PERSONALLY-HE FEELS THAT ALL THE OFFENDING BONE HAS BEEN REMOVED. WILL CONTINUE VIBRAMYCIN PO BID OF COURSE, NO GUARANTEES HAVE BEEN EMPLYIED OR MENTIONED. Chart, labs and vitals were reviewed X-ray reviewed- 3rd digit OM, subacute to chronic nondisplaced fracture of 1st proximal phalange Wound culture right foot- staphylococcus Aureus NWB in surgical shoe with assisting device for 2-3 days Physical therapy on hold for now, patient to rest due to bleeding in the surgical site until Thursday. Will resume Thursday Specimen right 3rd digit sent to pathology -pending Xray ordered and reviewed- postop operative 3rd digit amputation right foot Objective - Vital Signs/Intake and Output Vital Signs (last 24 hours): Temp Pulse Resp BP Pulse Ox 97.9 F 92 H 20 143/80 94 L 10/04/18 16:06 10/04/18 16:06 10/04/18 16:06 10/04/18 16:06 10/04/18 16:06 Intake and Output: 10/04/18 10/04/18 06:59 18:59 Intake Total 1260 600 Balance 1260 600 - Medications Medications: Current Medications Acetaminophen (Tylenol 325mg Tab) 650 mg PO Q6 PRN PRN Reason: Headache Last Admin: 10/03/18 22:16 Dose: 650 mg Docusate Sodium (Colace) 100 mg PO TID [facility] Last Admin: 10/04/18 17:29 Dose: 100 mg Gabapentin (Neurontin) 300 mg PO TID [facility] Last Admin: 10/04/18 17:29 Dose: 300 mg Gemfibrozil (Lopid) 600 mg PO BID [facility] Last Admin: 10/04/18 17:29 Dose: 600 mg Heparin Sodium (Porcine) (Heparin) 5,000 units SC Q8 [facility] Last Admin: 10/04/18 15:00 Dose: 5,000 units Meropenem 500 mg/ Sodium (Chloride) 100 mls @ 100 mls/hr IVPB Q8H [facility]; Protocol Last Admin: 10/04/18 17:33 Dose: 100 mls/hr Insulin Aspart (Novolog) 0 unit SC ACHS [facility] Last Admin: 10/04/18 17:30 Dose: Not Given Insulin Aspart (Novolog) 8 unit SC AC [facility] Last Admin: 10/04/18 17:30 Dose: Not Given Insulin Glargine (Lantus) 24 unit SC HS [facility] Last Admin: 10/03/18 22:05 Dose: 24 units Loratadine (Claritin) 10 mg PO DAILY [facility] Last Admin: 10/04/18 10:28 Dose: 10 mg Montelukast Sodium (Singulair) 10 mg PO DAILY [facility] Last Admin: 10/04/18 10:28 Dose: 10 mg Promethazine HCl (Phenergan Syrup) 6.25 mg PO Q6 PRN PRN Reason: Cough Last Admin: 10/03/18 22:19 Dose: 6.25 mg Rosuvastatin Calcium (Crestor) 5 mg PO HS [facility] Last Admin: 10/03/18 22:04 Dose: 5 mg Sitagliptin Phosphate (Januvia) 100 mg PO DAILY [facility] Last Admin: 10/04/18 10:28 Dose: 100 mg - Labs Labs: 10/04/18 07:00 10/04/18 07:00 PT 12.0 SECONDS (9.7-12.2) 10/01/18 06:41 INR 1.1 10/01/18 06:41 APTT 40 SECONDS (21-34) H 10/01/18 06:41
--- NOTE | 2018-10-04 18:42 | CP.PCM.PN ---
Subjective - Date & Time of Evaluation Date of Evaluation: 10/04/18 Time of Evaluation: 18:37 - Subjective Subjective: Podiatry Progress Note for Dr. Val CauseyF seen 3 days s/p right third digit amputation. Patient is AAO x 3 and NAD, resting comfortably in bed. States that pain is well controlled to her amputation site. Denies any acute overnight events or new pedal complaints. States that she underwent her first session of physical therapy today without incident. Denies any recent N/V/F/C/CP/SOB/D Objective - Vital Signs/Intake and Output Vital Signs (last 24 hours): Temp Pulse Resp BP Pulse Ox 97.9 F 92 H 20 143/80 94 L 10/04/18 16:06 10/04/18 16:06 10/04/18 16:06 10/04/18 16:06 10/04/18 16:06 Intake and Output: 10/04/18 10/04/18 06:59 18:59 Intake Total 1260 600 Balance 1260 600 - Medications Medications: Current Medications Acetaminophen (Tylenol 325mg Tab) 650 mg PO Q6 PRN PRN Reason: Headache Last Admin: 10/03/18 22:16 Dose: 650 mg Docusate Sodium (Colace) 100 mg PO TID [facility] Last Admin: 10/04/18 17:29 Dose: 100 mg Gabapentin (Neurontin) 300 mg PO TID [facility] Last Admin: 10/04/18 17:29 Dose: 300 mg Gemfibrozil (Lopid) 600 mg PO BID [facility] Last Admin: 10/04/18 17:29 Dose: 600 mg Heparin Sodium (Porcine) (Heparin) 5,000 units SC Q8 [facility] Last Admin: 10/04/18 15:00 Dose: 5,000 units Meropenem 500 mg/ Sodium (Chloride) 100 mls @ 100 mls/hr IVPB Q8H [facility]; Protocol Last Admin: 10/04/18 17:33 Dose: 100 mls/hr Insulin Aspart (Novolog) 0 unit SC ACHS [facility] Last Admin: 10/04/18 17:30 Dose: Not Given Insulin Aspart (Novolog) 8 unit SC AC [facility] Last Admin: 10/04/18 17:30 Dose: Not Given Insulin Glargine (Lantus) 24 unit SC HS [facility] Last Admin: 10/03/18 22:05 Dose: 24 units Loratadine (Claritin) 10 mg PO DAILY [facility] Last Admin: 10/04/18 10:28 Dose: 10 mg Montelukast Sodium (Singulair) 10 mg PO DAILY [facility] Last Admin: 10/04/18 10:28 Dose: 10 mg Promethazine HCl (Phenergan Syrup) 6.25 mg PO Q6 PRN PRN Reason: Cough Last Admin: 10/03/18 22:19 Dose: 6.25 mg Rosuvastatin Calcium (Crestor) 5 mg PO HS [facility] Last Admin: 10/03/18 22:04 Dose: 5 mg Sitagliptin Phosphate (Januvia) 100 mg PO DAILY [facility] Last Admin: 10/04/18 10:28 Dose: 100 mg - Labs Labs: 10/04/18 07:00 10/04/18 07:00 PT 12.0 SECONDS (9.7-12.2) 10/01/18 06:41 INR 1.1 10/01/18 06:41 APTT 40 SECONDS (21-34) H 10/01/18 06:41 - Constitutional Appears: Well, Non-toxic, No Acute Distress - Extremities Exam Additional comments: RLE focused exam: Vasc: DP/PT pulses fully palpable 2/4 b/l. Skin temperature warm to warm from proximal to distal. CFT < 3 seconds to all digits. Minimal edema noted to amputation site Neuro: Epicritic and protective sensation grossly diminished b/l Derm: Sutures intact to amputation site with no evidence of dehiscence. No fl uctuance, erythema, malodor, drainage or other clinical signs of infection appreciated at this time MSK: No pain on palpation of amputation site. Right third digit amputation appreciated. No other gross deformities noted - Neurological Exam Neurological Exam: Alert, Awake, Oriented x3 - Psychiatric Exam Psychiatric exam: Normal Affect, Normal Mood Assessment and Plan - Assessment and Plan (Free Text) Assessment: 68F seen 3 days s/p right third digit amputation Plan: Patient seen and evaluated Plan discussed with Dr. Neal Afebrile, absent leukocytosis Continue abx per ID Wound cx toe: Staph Aureus No plan for further surgical intervention at this time Amputation dressed with betadine, DSD Continue PT Podiatry will continue to follow while patient in house
--- NOTE | 2018-10-05 00:45 | PN ---
DATE: 10/04/2018 ENDOCRINOLOGY FOLLOWUP NOTE LOCATION: Room 369. SUBJECTIVE: This is a 68-year-old female with recent uncontrolled type 2 insulin-requiring diabetes, presenting here with right third toe necrotic ulceration with cellulitis and underwent a recent third toe amputation and is now being followed closely for metabolic management. Her glycemic levels are fluctuating also because of the variability of her oral intake as noted. Her glucose levels today have ranged from 74 to 270 mg/dL. It was 304 at bedtime last night. LABORATORY DATA: Her chemistries today showed a BUN of 14, sodium 135, potassium 4.6, chloride 100, CO2 of 29, glucose 271, and creatinine 1. ASSESSMENT: This is a 68-year-old female with recent uncontrolled type 2 insulin-requiring diabetes, presenting here with third toe nonhealing necrotic ulceration and cellulitis and underwent a third toe amputation and is now being followed closely for metabolic management. She clearly had suboptimal metabolic control even prior to this admission as noted. She also has diabetic microvascular complications of retinopathy, polyneuropathy and diabetic macrovascular complications of coronary artery disease and peripheral vasculopathy as noted. PLAN OF MANAGEMENT: We will modify her current basal and bolus insulin regimen also because of the variability of her oral intake as noted. We will change her NovoLog down to 8 units t.i.d. before meals to start today as ordered. We will also lower her basal insulin to Lantus given as 24 units subcutaneous at bedtime daily to start tonight. We will obtain serial chemistries and supplement accordingly as needed. We will also continue the low-dose correction scale using NovoLog insulin to obviate hypoglycemia as given. We will follow. Anna Marie Pearce MD
== END 2018-10-04 20:15 | disposition home or self-care (01) | DRG 617 ==
LOC: C.ER 20:37 → C.3T 22:34
PROVIDERS: ADMIT Internal Medicine; ATTEND Internal Medicine
PROC: 0Y6T0Z0 Detachment at Right 3rd Toe, Complete, Open Approach (ICD-10-PCS; principal; 2018-10-01 15:30)
DX: E11.621 Type 2 diabetes mellitus with foot ulcer (principal); E11.52 Type 2 diabetes mellitus with diabetic peripheral angiopathy with gangrene; M86.171 Other acute osteomyelitis, right ankle and foot; L03.115 Cellulitis of right lower limb; I96 Gangrene, not elsewhere classified; L97.514 Non-pressure chronic ulcer of other part of right foot with necrosis of bone; E11.69 Type 2 diabetes mellitus with other specified complication; B95.61 Methicillin susceptible Staphylococcus aureus infection as the cause of diseases classified elsewhere; E11.42 Type 2 diabetes mellitus with diabetic polyneuropathy; E11.65 Type 2 diabetes mellitus with hyperglycemia; I10 Essential (primary) hypertension; I25.10 Atherosclerotic heart disease of native coronary artery without angina pectoris; E11.649 Type 2 diabetes mellitus with hypoglycemia without coma; E11.319 Type 2 diabetes mellitus with unspecified diabetic retinopathy without macular edema; E78.5 Hyperlipidemia, unspecified; E78.00 Pure hypercholesterolemia, unspecified; Z91.14 Patient's other noncompliance with medication regimen; Z79.4 Long term (current) use of insulin